=== PATIENT | female | born 1950 | race Caucasian/White ===

== ENCOUNTER → 2017-07-02 | Outpatient (CLI) | payer OTHER ==
[~2017-07-02] MED LIST: NS 100 ML IV 100 ML IV ONE
--- NOTE | 2017-07-02 10:42 | CT ---
HISTORY: Right-sided abdomen pain radiating to back. Anterior abdominal pain with nausea. Symptoms fo r 4 months. Study: CT abdomen and pelvis with IV and oral contrast Comparison: No priors Technique: Multiple axial images of the abdomen and pelvis were obtained from the lung bases to the pubic symphy sis during the administration of IV contrast. Oral contrast agents were also given. Images are revie wed in coronal and sagittal planes also. Dose reduction techniques utilized automatic exposure contro l. Findings: The visualized portions of the lung bases are unremarkable. There is evidence of fairly large amount of ascites present within the abdomen and pelvis. There is also evidence of omental caking. This may indicate the presence of ovarian, gastric or colon cancer, rarely metastatic melanoma. Tissue diagnos is will be needed. The liver is normal in size. There are peripheral hypodensities present within rig ht and left hepatic lobes which are too small to characterize but may represent small cysts. The sple en, pancreas, kidneys, and adrenal glands are unremarkable in their CT appearance. The gallbladder is unremarkable in its CT appearance. No significant mesenteric lymphadenopathy or stranding can be ob served. No free air is seen within the abdomen. No bowel wall dilatation is present. The rodriguez of the sigmoid colon region appear to be thickened. Evaluation by colonoscopy is encouraged. No signific ant diverticulosis is seen. Uterus is normal in size but displays a heterogeneous appearance. Further evaluation of the pelvis by ultrasound is suggested.. The urinary bladder is grossly unremarkable. The bony structures are grossly intact. IMPRESSION: Fairly large amount of ascites present within the abdomen and pelvis. 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 The omentum measures about 3 cm in thickness and 16 cm in diameter. This is best seen on series 4, image 51. Although this may be on the basis of inflammation, this is most frequently seen in the presence of ovarian , gastric or colon cancer, rarely metastatic melanoma. Thickening of the rodriguez of the sigmoid colon is present and may be significant. Colonoscopy of this region is encouraged. A tis isabel diagnosis will likely be needed. Reported By:
== END ==
LOC: RAD 08:56
PROVIDERS: ATTEND Internal Medicine
DX: R10.11 Right upper quadrant pain (principal); R10.31 Right lower quadrant pain; R10.32 Left lower quadrant pain; R18.8 Other ascites
CPT/HCPCS: 74177; A4222

== ENCOUNTER 2021-06-11 15:20 | Inpatient (IN) ==
[2021-06-11 18:17] LABS: BLOOD UREA NITROGEN 29 mg/dL (7-18); CALCIUM 8.5 mg/dL (8.5-10.1); CARBON DIOXIDE 21.3 mmol/L (21-32); CHLORIDE 102 mmol/L (98-107); CREATININE 0.96 mg/dL (0.55-1.02); SODIUM 137 mmol/L (136-145); eGFR NON BLACK RACES > 60 (>60)
[2021-06-11 18:28] VITALS: BMI 24.0
[2021-06-11 18:29] LABS: BASOPHILS % (AUTO) 0.4 % (0.2-1.0); EOSINOPHILS % (AUTO) 0.3 % (0.9-2.9); HEMATOCRIT 26.4 % (36.0-47.0); HEMOGLOBIN 8.7 g/dL (12.0-16.0); LYMPHOCYTES # (AUTO) 0.3 X10^3/uL (1.3-2.9); LYMPHOCYTES % (AUTO) 14.3 % (21.0-51.0); MEAN CORPUSCULAR HEMOGLOBIN 27.8 pg (27.0-34.0); MEAN CORPUSCULAR VOLUME 84.3 fL (80.0-100.0); MEAN PLATELET VOLUME 7.3 fL (7.4-11.0); MONOCYTES # (AUTO) 0.1 x10^3/uL (0.3-0.8); NEUTROPHILS # (AUTO) 1.9 x10^3/uL (2.2-4.8); RED BLOOD COUNT 3.13 X10^6/uL (3.5-5.4); RED CELL DISTRIBUTION WIDTH 17.8 % (11.6-16.5); WHITE BLOOD COUNT 2.3 X10^3/uL (3.6-10.0)
[2021-06-11 18:48] LABS: ALANINE AMINOTRANSFERASE 16 Units/L (12-78); ALBUMIN 2.2 g/dL (3.4-5.0); ALKALINE PHOSPHATASE 376 Units/L (46-116); AMYLASE 68 Units/L (25-115); ASPARTATE AMINO TRANSFERASE 59 Units/L (15-37); COR CA(FOR HYPOALB) 9.9 mg/dL (8.5-10.1); LIPASE 130 Units/L (73-393); TOTAL PROTEIN 6.4 g/dL (6.4-8.2)
[2021-06-11 19:12] LABS: OVALOCYTES SLIGHT; PLATELET MORPHOLOGY COMMENT NORMAL (NORMAL); TARGET CELLS SLIGHT; TEAR DROP CELLS SLIGHT
[2021-06-11] MEDS ORDERED: MORPHINE SULFATE INJ 2 MG INJ ONE (19:21)
[2021-06-11 19:32] LABS: BILIRUBIN,URINE 1+ (NEGATIVE); BLOOD/HEMOGLOBIN,URINE 1+ (NEGATIVE); GLUCOSE, URINE NEGATIVE (NEGATIVE); KETONES,URINE 3+ (NEGATIVE); LEUKOCYTE ESTERASE ,URINE 1+ (NEGATIVE); NITRITES,URINE NEGATIVE (NEGATIVE); PROTEIN,URINE 3+ (NEGATIVE); UROBILINOGEN,URINE NORMAL (NORMAL)
[2021-06-11] MEDS: ZOFRAN INJ 4 MG VIAL IVP PRN (19:35)
[2021-06-11] MEDS: NS 1,000 ML IV 1,000 ML IV SCH (19:35)
[2021-06-11] MEDS: MORPHINE SULFATE INJ 2 MG INJ IVP PRN (19:36)
[2021-06-11 19:48] LABS: APPEARANCE,URINE CLEAR (CLEAR); BACTERIA,URINE 1+ /HPF (NEGATIVE); COLOR,URINE YELLOW (YELLOW); HYALINE CASTS, URINE MANY /LPF (NEGATIVE); RBC,URINE 0-2 /HPF (0-3); SQUAMOUS EPITHELIAL CELL,UR FEW /HPF (NEGATIVE)
[2021-06-11] MEDS ORDERED: PHARMACY CONSULT - LOVENOX XX SCH (20:00)
[2021-06-11] MEDS ORDERED: PHARMACY CONSULT - IVERMECTIN XX SCH (20:00)
--- NOTE | 2021-06-11 20:43 | RAD ---
HISTORYABD PAIN Relevant Clinical InformationSTUDYKUBCOMPARISONNone br.br.br pattern. No pathological soft tissue mass or calcification can be observed. The bony structures are grossly intact.IMPRESSIONNo evidence for acute abdominal pathology identified.Electronically signed by: NANCY MYERS (Jun 11, 2021 20:42:11)
--- NOTE | 2021-06-11 20:43 | RAD ---
HISTORYRelevant Clinical Information COVIDSTUDYCHEST, 1 VIEWCOMPARISONNoneFINDINGSThe trachea is midline. The cardiac silhouette is unremarkable. A right-sided Port-A-Cath is noted with tip overlying the cavoatrial junction. The lungs demonstrate a moderate-sized left-sided effusion with associated consolidation/atelectasis. There is also a tiny cys effusions suspected on the right t the bony thorax is unremarkable.IMPRESSIONSigns left-sided effusion with associated atelectasis/consolidation. A tiny effusion suspected on the right as well.Electronically signed by: NANCY MYERS (Jun 11, 2021 20:41:57)
[2021-06-11] MEDS: LOVENOX INJ 30 MG SYR SC SCH (20:58)
[2021-06-11] MEDS ORDERED: REMDESIVIR 200 MG in NS 250 ML IV 250 ML IV ONE (21:00)
[2021-06-11] MEDS: LUVOX PO SCH (21:00)
[2021-06-11] MEDS: SOLU-Medrol 40 MG VIAL IVP SCH (21:00)
[2021-06-12] MEDS: MORPHINE SULFATE INJ 2 MG INJ IVP PRN ×5 (00:56→22:57)
[2021-06-12] MEDS: ZOFRAN INJ 4 MG VIAL IVP PRN ×2 (05:13→20:10)
[2021-06-12] MEDS: SOLU-Medrol 40 MG VIAL IVP SCH ×3 (05:13→21:55)
[2021-06-12 05:35] LABS: BASOPHILS % (AUTO) 0.2 % (0.2-1.0); EOSINOPHILS % (AUTO) 0.1 % (0.9-2.9); HEMATOCRIT 24.8 % (36.0-47.0); HEMOGLOBIN 8.1 g/dL (12.0-16.0); LYMPHOCYTES # (AUTO) 0.3 X10^3/uL (1.3-2.9); LYMPHOCYTES % (AUTO) 13.8 % (21.0-51.0); MEAN CORPUSCULAR HEMOGLOBIN 27.8 pg (27.0-34.0); MEAN CORPUSCULAR HGB CONC 32.9 g/dL (33.0-35.0); MEAN CORPUSCULAR VOLUME 84.6 fL (80.0-100.0); MEAN PLATELET VOLUME 7.3 fL (7.4-11.0); MONOCYTES # (AUTO) 0.1 x10^3/uL (0.3-0.8); MONOCYTES % (AUTO) 6.4 % (0.0-13.0); NEUTROPHILS # (AUTO) 1.8 x10^3/uL (2.2-4.8); NEUTROPHILS % (AUTO) 79.5 % (42.0-75.0); RED BLOOD COUNT 2.93 X10^6/uL (3.5-5.4); RED CELL DISTRIBUTION WIDTH 17.8 % (11.6-16.5); WHITE BLOOD COUNT 2.3 X10^3/uL (3.6-10.0)
[2021-06-12 05:39] LABS: BLOOD UREA NITROGEN 33 mg/dL (7-18); CALCIUM 8.5 mg/dL (8.5-10.1); CARBON DIOXIDE 21.6 mmol/L (21-32); CHLORIDE 104 mmol/L (98-107); CREATININE 1.04 mg/dL (0.55-1.02); SODIUM 141 mmol/L (136-145); eGFR NON BLACK RACES 56 (>60)
[2021-06-12 06:07] LABS: ALANINE AMINOTRANSFERASE 14 Units/L (12-78); ALKALINE PHOSPHATASE 351 Units/L (46-116); AMYLASE 48 Units/L (25-115); ASPARTATE AMINO TRANSFERASE 54 Units/L (15-37); COR CA(FOR HYPOALB) 10.1 mg/dL (8.5-10.1); LIPASE 51 Units/L (73-393); TOTAL PROTEIN 6.2 g/dL (6.4-8.2)
[2021-06-12 06:26] LABS: ANISOCYTOSIS 1+; HYPOCHROMASIA 1+; PLATELET MORPHOLOGY COMMENT NORMAL (NORMAL)
[2021-06-12] MEDS ORDERED: REMDESIVIR 100 MG in NS 250 ML IV 250 ML IV SCH (09:00)
--- NOTE | 2021-06-12 09:50 | CT ---
HISTORYelevated d dimer, r/o pe history of ovarian carcinoma.[facility]CT[facility]AL[facility]21TECHNIQUEMultiple CT axial images of the chest were obtained with IV contrast. Coronal and sagittal images were reconstructed. 3D reconstructions using axial MIPS imaging was performed and reviewed. Dose reduction techniques included Automated Exposure Control (AEC) and adjustment of mA and kV.Stenoses are measured using NASCET criteria.FINDINGSPulmonary arteries are identified to lobar branches in the left lower lung in segmental branches in the upper left lung and right lung. No pulmonary emboli.Aorta have a normal caliber with no dissection.Large left pleural effusion is small right pleural effusion are new since the prior study. Complete collapse of the left lower lobe is associated with the large left effusion. Minimal atelectasis in the left upper lobe and the right lower lobe.Multiple pulmonary nodules are present consistent with metastatic disease. Largest nodules in aerated lung are located in the right lower lung and these are larger than on the prior study.The heart is normal in size. Atherosclerotic calcifications are present in the coronary arteries. Mediastinal lymphadenopathy is new. Largest lymph nodes are in the precarinal mediastinum.The thyroid has a normal size and configuration. No axillary mass or significant axillary lymphadenopathy is identified. Bilateral breast implants are present.The amount of Large volume ascites does not appear to be changed significantly. Multiple liver masses are consistent with metastases. These are larger than on the prior study.Degenerative changes are present in the spine.IMPRESSION1. No pulmonary emboli2. Larger pulmonary and hepatic metastases3. New bilateral effusions, large on the leftElectronically signed by: Eduardo Freitas (Jun 12, 2021 09:48:19)
[2021-06-12] MEDS ORDERED: SOTROVIMAB (EUA) 500 MG, DRUG FILTER EXTENSION SET * 1 EA in NS 250 ML IV 250 ML IV NR ×2 (10:00)
--- NOTE | 2021-06-12 10:14 | DR.H&P ---
H&P - History & Physical for Day of: H&P Date: 06/11/21 - Chief Complaint Chief Complaint: INTRACTABLE N/V/D, ABDOMINAL PAIN - History of Present Illness History of Present Illness: IS A 71 YEAR OLD PATIENT OF OURS. SHE HAS BEEN SEEN IN THE OFFICE FOR REPORTS OF PERSISTENT NAUSEA, VOMITING, DIARRHEA, ABDOMINAL PAIN, AND BACK PAIN X 1 DAYS. PATIENT REPORTS RECENTLY HAVING A SMALL BOWEL OBSTRUCTION. SHE HAS ALSO HAD RECENT PLACEMENT OF STENT IN CORONARY ARTERY. SHE HAS A CURRENT HISTORY OF BREAST CANCER WITH METS TO THE CERVIX, LIVER, AND COLON. ON EXAMINATION, PATIENT WAS LETHARGIC AND PALE. EXAMINATION REVEALED A DISTENDED ABDOMEN AND GENERALIZED TENDERNESS. DECREASED BOWEL SOUNDS WERE NOTED. SHE WAS ADMITTED TO THE HOSPITAL FOR FURTHER EVALUATION AND TREATMENT OF INTRACTABLE N/V/D, ABDOMINAL PAIN, R/O SBO. ON ARRIVAL TO THE HOSPTIAL, VITALS WERE 98.2-100-20-96%-119/56. LABS WERE OBTAINED. WBC 2.3, RBC 3.13, HGB 8.7, HCT 26.4, D-DIMER 8.51, SODIUM 137, POTASSIUM 4.0, CHLORIDE 102, BUN 29, CREATININE 0.96, GLUCOSE 97, CALCIUM 8.5, AST 59, ALT 16, ALK PHOS 376, CRP 131, BNP 395, TOTAL PROTEIN 6.4, ALBUMIN 2.2. URINALYSIS WAS OBTAINED AND IS UNREMARKABLE. COVID-19 POSITIVE. A URINE CULTURE WAS SET UP. A CHEST XRAY WAS OBTAINED AND REVEALED: Signs left-sided effusion with associated atelectasis/consolidation. A tiny effusion suspected on the right as well. A KUB WAS OBTAINED AND REVEALED: No evidence for acute abdominal pathology identified. ON ADMISSION, SHE WAS STARTED ON NORMAL SALINE AT KVO, ZOSYN 3.375G IV TID, LOVENOX 30MG SC BID, LUVOX 50MG PO BID, IVERMECTIN 18MG PO DAILY, SOLU-MEDROL 40MG IV Q8H, MORPHINE 1-2MG IV Q4H PRN, AND ZOFRAN 4MG IV Q6H PRN. WE WILL ADMINSTER SOTROVIMAB 500MG IV X 1 DOSE. WE WILL OBTAIN A CHEST CTA TO RULE OUT PE AND AN ABDOMEN/PELVIS CT WITH CONTRAST TO RULE OUT SBO AND OTHER CAUSES OF INTRACTABLE ABDOMINAL PAIN. OTHERWISE, WE PLAN TO FOLLOW UP WITH AM LABS AND CONTINUE TO MONITOR. TIME SPENT ON CLINICAL ASSESSMENT, REVIEWING LABS AND IMAGING, DECISION MAKING, AND DOCUMENTATION GREATER THAN 75 MINUTES. - Past Medical History Past Medical History: Cirrhosis, Coronary Artery Disease, [place] Additional Medical History: BREAST,LIVER,COLON,CERVICAL CANCER - Past Surgical History Surgical History: Abdominal Surgery, Appendectomy, Bowel Resection, CABG/Valve Surgery, Hysterectomy, Mastectomy - Social History Does patient currently use any type of tobacco product: No Have you used tobacco products in the last 12 months: No Type of Tobacco Use: None Does any household member use tobacco: No Alcohol Use: None Drug Use: None - Medications Home Medications: meperidine [From Demerol] Adverse Reaction (Mild, Verified 06/11/21 17:34) NAUSEA - Review of Systems Constitutional: Weakness Eyes: No Symptoms Reported ENT: No Symptoms Reported Respiratory: Shortness of Breath Cardiovascular: No Symptoms Reported Gastrointestinal: See HPI, Nausea, Vomiting, Abdominal Pain, Diarrhea Genitourinary: No Symptoms Reported Musculoskeletal: No Symptoms Reported Skin: No Symptoms Reported Neurological: Weakness - Physical Exam Vital Signs: Temperature 98.0 F Pulse Rate [Left] 86 Respiratory Rate 19 Blood Pressure [Right Arm] 101/60 O2 Sat by Pulse Oximetry 93 Oriented: Normal Eyes: Normal Ear: Normal Nose: Normal Throat: Normal Respiratory: Diminished Throughout Cardiovascular: Normal : Normal Palpation: Normal Tenderness: Diffuse, Moderate Skin: Decreased Turgur Musculoskeletal: Normal Psychiatric: Normal Mood Description: Calm Affect: Normal Speech Pattern: Clear - Assessment/Plan (1) COVID-19 Status: Acute Plan: ADMIT, NORMAL SALINE AT KVO, ZOSYN 3.375G IV TID, LOVENOX 30MG SC BID, LUVOX 50MG PO BID, IVERMECTIN 18MG PO DAILY, SOLU-MEDROL 40MG IV Q8H, MORPHINE 1-2MG IV Q4H PRN, AND ZOFRAN 4MG IV Q6H PRN. WE WILL ADMINSTER SOTROVIMAB 500MG IV X 1 DOSE. OBTAIN ABDOMEN/PELVIS CT WITH CONTRAST, OBTAIN CHEST CTA R/O PE (2) Abdominal pain Qualifiers: Abdominal location: generalized Qualified Code(s): R10.84 - Generalized abdominal pain Status: Acute (3) Intractable nausea and vomiting Status: Acute (4) Metastatic disease Qualifiers: Area of secondary neoplastic involvement: unspecified site Qualified Code(s): C79.9 - Secondary malignant neoplasm of unspecified site Status: Acute - Allergies Allergies/Adverse Reactions: Allergies Allergy/AdvReac Type Severity Reaction Status Date / Time meperidine [From Demerol] AdvReac Mild NAUSEA Verified 06/11/21 17:34
[2021-06-12] MEDS: LUVOX PO SCH ×2 (10:48→20:54)
[2021-06-12] MEDS: LOVENOX INJ 30 MG SYR SC SCH ×2 (10:49→20:54)
[2021-06-12] MEDS: IVERMECTIN PO SCH (10:49)
[2021-06-12] MEDS: PLAVIX PO SCH (11:02)
[2021-06-12] MEDS: ZOSYN VIAL 3.375 GRAMS 3.375 G in NS 100 ML IV + SPIKE MINIBAG* 100 ML IV SCH ×3 (11:02→21:55)
[2021-06-12] MEDS: LASIX PO SCH ×2 (11:05→20:54)
[2021-06-12 11:08] LABS: CKMB % 1.9 % (<4); CREATINE KINASE MB 1.2 ng/mL (0-4.0)
[2021-06-12] MEDS: PHENERGAN INJ 25 MG IM SCH ×3 (15:46→22:57)
[2021-06-12] MEDS: NS 1,000 ML IV 1,000 ML IV SCH (19:50)
[2021-06-12] MEDS ORDERED: CRESTOR TAB 10 MG PO SCH (21:00)
[2021-06-13] MEDS: ZOFRAN INJ 4 MG VIAL IVP PRN ×4 (02:44→23:30)
[2021-06-13] MEDS: PHENERGAN INJ 25 MG IM SCH (04:30)
[2021-06-13] MEDS: ZOSYN VIAL 3.375 GRAMS 3.375 G in NS 100 ML IV + SPIKE MINIBAG* 100 ML IV SCH ×3 (05:53→22:23)
[2021-06-13] MEDS: SOLU-Medrol 40 MG VIAL IVP SCH ×3 (05:53→22:23)
[2021-06-13 06:40] LABS: EOSINOPHILS % (AUTO) 0.3 % (0.9-2.9); MEAN PLATELET VOLUME 7.1 fL (7.4-11.0); MONOCYTES # (AUTO) 0.1 x10^3/uL (0.3-0.8)
[2021-06-13 06:47] LABS: BASOPHILS % (AUTO) 0.3 % (0.2-1.0); HEMATOCRIT 25.8 % (36.0-47.0); HEMOGLOBIN 8.5 g/dL (12.0-16.0); LYMPHOCYTES # (AUTO) 0.4 X10^3/uL (1.3-2.9); MEAN CORPUSCULAR HEMOGLOBIN 28.1 pg (27.0-34.0); MEAN CORPUSCULAR VOLUME 85.3 fL (80.0-100.0); MONOCYTES % (AUTO) 8.2 % (0.0-13.0); NEUTROPHILS # (AUTO) 1.1 x10^3/uL (2.2-4.8); NEUTROPHILS % (AUTO) 69.2 % (42.0-75.0); RED BLOOD COUNT 3.02 X10^6/uL (3.5-5.4); RED CELL DISTRIBUTION WIDTH 17.9 % (11.6-16.5); WHITE BLOOD COUNT 1.6 X10^3/uL (3.6-10.0)
[2021-06-13 06:58] LABS: ALBUMIN 2.1 g/dL (3.4-5.0); CALCIUM 8.4 mg/dL (8.5-10.1); CARBON DIOXIDE 19.9 mmol/L (21-32); COR CA(FOR HYPOALB) 9.9 mg/dL (8.5-10.1); CREATININE 1.38 mg/dL (0.55-1.02); TOTAL PROTEIN 6.4 g/dL (6.4-8.2)
--- NOTE | 2021-06-13 07:18 | RAD ---
HISTORYCOVID-19 SOBSTUDYAP [id number]/24/2022FINDINGSPersist ent large left pleural effusion obscuring the underlying left lower lobe which may be involved with airspace disease. The right chest is relatively clear as before. Stable position of injection port.IMPRESSIONNo change. See above.Electronically signed by: WILFREDO MAS (Jun 13, 2021 07:17:42)
[2021-06-13] MEDS ORDERED: NS 100 ML IV 100 ML ONE (07:21)
--- NOTE | 2021-06-13 08:25 | CT ---
HISTORYABD PAIN, RECENT HX OF SBOSTUDYCT abdomen pelvis with IV contrastCOMPARISONX-ray 06/11/[address] 05/13/2021TECHNIQUEMultiple axial images of the abdomen and pelvis were obtained from the lung bases to the pubic symphysis after the administration of IV contrast. 100 cc Omnipaque 350 IV contrast. Dose reduction techniques including Automated Exposure Control (AEC) and adjustment of mA and kV were utilized.FINDINGSThe visualized portions of the lung bases reveal moderate left pleural effusion and small right pleural effusion. Associated atelectasis is seen. There are likely few small nodules in the right lung base that are concerning for metastatic disease. These were present previously.Multiple hepatic metastases are seen throughout the liver. These are similar to prior study.In the superior aspect of the spleen there is a small wedge-shaped area of slight diminished density the. This could be a small splenic infarct of approximately 1/10 of the volume of the spleen.Gallbladder is partially effaced due to the hepatic metastases and the ascites. No gallbladder abnormality is seen. No biliary ductal dilation.No pancreatic abnormality is seen.The adrenal glands appear normal.Likely 8 mm cyst in the mid left kidney. Right kidney appears normal. No hydronephrosis. Ureters and bladder appear normal.Prior anastomosis in the rectosigmoid colon. There are dilated small bowel loops extending into the pelvis. This appearance has worsened since prior study. Small bowel is dilated up to 5.6 cm in diameter. Distal ileum is decompressed. Findings are likely due to adhesions in the small bowel in the deep pelvis near the area of prior colonic anastomosis. Appendix is not identified.No adnexal masses are seen.Abdominal aorta is normal in size.Few small lymph nodes are seen in the root of the mesentery, unchanged. Shotty appearing retroperitoneal lymph nodes are seen, similar to prior study.Prominent ascites is similar to prior study. There is a small umbilical hernia containing fluid as well as a tiny supraumbilical hernia containing fluid. There is moderate anasarca.No acute bony abnormality is seen.IMPRESSIONSmall-bowel obstruction in the deep pelvis with small bowel dilated up to 5.6 cm in diameter. Adhesions are the most likely etiology. Small-bowel dilation is worsened since prior study.Persistent prominent ascites may be associated with metastatic disease or treatment related changes. Multiple metastases in the liver are similar to prior study.Probable small metastases are seen in the lung bases.Electronically signed by: Jaron Hall (Jun 13, 2021 08:23:37)
[2021-06-13] MEDS ORDERED: PERCOCET TAB 5/325 MG PO PRN (08:27)
[2021-06-13 08:36] LABS: CKMB % 1.8 % (<4); CREATINE KINASE MB 1.8 ng/mL (0-4.0)
[2021-06-13] MEDS: MORPHINE SULFATE INJ 2 MG INJ IVP PRN ×3 (08:49→23:30)
[2021-06-13] MEDS ORDERED: ASPIRIN EC 81 MG PO SCH (09:00)
[2021-06-13] MEDS ORDERED: FERROUS GLUCONATE PO SCH (09:00)
--- NOTE | 2021-06-13 12:27 | RAD ---
KUBHISTORY: NG TUBE PLACEMENTStudy: Single view of the abdomen.Comparison:CT same dayFindings:There is a NG tube terminating within the stomach with side port near the GE junction.IMPRESSION:1. NG tube terminating within the stomach with side port at GE junction. Recommend advancement at least 7 cm.Electronically signed by: ZORAIDA HERNANDEZ (Jun 13, 2021 12:25:16)
[2021-06-13] MEDS ORDERED: PHENERGAN INJ 25 MG IM PRN (13:37)
--- NOTE | 2021-06-13 13:47 | PCM.PROG ---
Progress Note - Progress Note for Day of Date of Exam: 06/13/21 - Subjective Subjective: WAS ADMITTED FOR TREATMENT OF COVID-19, INTRACTABLE N/V, AND ABDOMINAL PAIN. SHE HAS A HISTORY OF METASTATIC DISEASE. PATIENT ALSO RECENTLY UNDERWENT RECENT STENT PLACEMENT IN CORONARY ARTERY ABOUT A MONTH AGO. TODAY, SHE IS LYING IN BED WITH EYES CLOSED ON MORNING ROUNDS. SHE AWAKENS AND RESPONDS TO VERBAL STIMULI. STAFF REPORTS THAT SHE HAS HAD MULTIPLE EPISODES OF N/V THROUGHOUT THE NIGHT. SHE CONTINUES WITH DIFFUSE ABDOMINAL PAIN TODAY. ON EXAMINATION, HEART IS REGULAR IN RATE AND RHYTHM. BILATERAL LUNGS NOTED WITH DIMINISHED LUNG SOUNDS THROUGHOUT. ABDOMEN IS FLAT, SOFT, AND NOTED WITH DIFFUSE TENDERNESS. DECREASED BOWEL SOUNDS NOTED. HER VITALS THIS MORNING ARE: 97.5-93 -12-99%-131/63. LABS WERE OBTAINED. ABNORMAL LAB VALUES INCLUDE THE FOLLOWING: WBC 1.6, RBC 3.02, HGB 8.5, HCT 25.8, CARBON DIOXIDE 19.9, BUN 44, CREATININE 1.38, GLUCOSE 118, CALCIUM 8.4, AST 49, ALK PHOS 356, CRP 162.50, BNP 289, ALBUMIN 2.1. TROPONIN IS 174.4. THIS HAS DECREASED SINCE YESTERDAY. URINE CULTURE IS PENDING. A CHEST CTA WAS OBTAINED YESTERDAY AND REVEALED: 1. No pulmonary emboli 2. Larger pulmonary and hepatic metastases 3. New bilateral effusions, large on the left. AN ABDOMEN/PELVIS CT WITH CONTRAST WAS OBTAINED THIS MORNING AND REVEALED: Small-bowel obstruction in the deep pelvis with small bowel dilated up to 5.6 cm in diameter. Adhesions are the most likely etiology. Small-bowel dilation is worsened since prior study. Persistent prominent ascites may be associated with metastatic disease or treatment related changes. Multiple metastases in the liver are similar to prior study. Probable small metastases are seen in the lung bases. TODAYS CHEST XRAY REVEALED: Persistent large left pleural effusion obscuring the underlying left lower lobe which may be involved with airspace disease. The right chest is relatively clear as before. Stable position of injection port. SHE IS CURRENTLY RECEIVING NORMAL SALINE AT KVO, ZOSYN 3.375G IV TID, LOVENOX 30MG SC BID, LUVOX 50MG PO BID, IVERMECTIN 18MG PO DAILY, SOLU-MEDROL 40MG IV Q8H, MORPHINE 1-2MG IV Q4H PRN, PHENERGAN 25MG IM Q6H PRN, AND ZOFRAN 4MG IV Q6H PRN. SHE RECEIVIED SOTROVIMAB 500MG IV X 1 DOSE YESTERDAY. TODAY, WE WILL START LASIX 40MG IV BID, TPN, AND INSERT AN NG TUBE TO LOW INTERMITTENT SUCTION. PATIENT WILL REMAIN NPO. OTHERWISE, WE PLAN TO FOLLOW UP WITH AM LABS AND KUB AND CONTINUE TO MONITOR. TIME SPENT ON CLINICAL ASSESSMENT, REVIEWING LABS AND IMAGING, DECISION MAKING, AND DOCUMENTATION GREAT ER THAN 75 MINUTES. - Past Medical Family Social History Past Med/Fam/Surg Hx: No changes since H&P Allergies: Allergies meperidine [From Demerol] Adverse Reaction (Mild, Verified 06/11/21 17:34) NAUSEA severe nausea - Review of Systems ROS: No change since H&P - Vital Signs and I&O's Vital Signs: Temperature 97.5 F Pulse Rate [Left] 93 Respiratory Rate 18 Blood Pressure [Right Arm] 131/63 O2 Sat by Pulse Oximetry 99 Intake and Output: Intake & Output 06/11/21 06/12/21 06/13/21 06/14/21 11:59 11:59 11:59 11:59 Intake Total 550 / 550 500 / 500 Output Total 400 / 400 Balance 150 / 150 500 / 500 - Physical Exam Oriented: Normal Eyes: Normal Ear: Normal Nose: Normal Throat: Normal Respiratory: Generalized, Diminished Cardiovascular: Normal : Normal Auscultation: Bowel Sounds: Decreased Tenderness: Diffuse, Moderate Skin: Decreased Turgur Musculoskeletal: Normal Psychiatric: Normal Mood Description: Calm Affect: Normal Speech Pattern: Clear, Appropriate - Laboratory and Diagnostics Result Diagrams: 06/13/21 06:21 06/13/21 06:21 Labs: 06/11/21 18:58 Urine,Clean Catch Urine Culture - Final Laboratory WBC 1.6 X10^3/uL (3.6-10.0) L* 06/13/21 06:21 RBC 3.02 X10^6/uL (3.5-5.4) L 06/13/21 06:21 Hgb 8.5 g/dL (12.0-16.0) L 06/13/21 06:21 Hct 25.8 % (36.0-47.0) L 06/13/21 06:21 MCV 85.3 fL (80.0-100.0) 06/13/21 06:21 MCH 28.1 pg (27.0-34.0) 06/13/21 06:21 MCHC 33.0 g/dL (33.0-35.0) 06/13/21 06:21 RDW 17.9 % (11.6-16.5) H 06/13/21 06:21 Plt Count 283 X10^3/uL (150.0-450.0) 06/13/21 06:21 Plt Count Comment Adequate (ADEQUATE) 06/12/21 04:28 MPV 7.1 fL (7.4-11.0) L 06/13/21 06:21 Neut % (Auto) 69.2 % (42.0-75.0) 06/13/21 06:21 Lymph % (Auto) 22.0 % (21.0-51.0) 06/13/21 06:21 Johnson % (Auto) 8.2 % (0.0-13.0) 06/13/21 06:21 Eos % (Auto) 0.3 % (0.9-2.9) L 06/13/21 06:21 Baso % (Auto) 0.3 % (0.2-1.0) 06/13/21 06:21 Neut # (Auto) 1.1 x10^3/uL (2.2-4.8) L 06/13/21 06:21 Lymph # (Auto) 0.4 X10^3/uL (1.3-2.9) L 06/13/21 06:21 Johnson # (Auto) 0.1 x10^3/uL (0.3-0.8) L 06/13/21 06:21 Eos # (Auto) 0.0 x10^3/uL (0.0-0.2) 06/13/21 06:21 Baso # (Auto) 0.0 X10^3/uL (0.0-0.1) 06/13/21 06:21 Absolute Nucleated RBC 0.0 /100WBC 06/13/21 06:21 Total Counted 100 06/12/21 04:28 Neutrophils % (Manual) 80 % (39-76) H 06/12/21 04:28 Lymphocytes % (Manual) 14 % (13-43) 06/12/21 04:28 Monocytes % (Manual) 6 % (4-9) 06/12/21 04:28 Plt Morphology Comment Normal (NORMAL) 06/12/21 04:28 RBC Morphology Abnormal (NORMAL) A 06/12/21 04:28 Hypochromasia 1+ A 06/12/21 04:28 Anisocytosis 1+ A 06/12/21 04:28 Target Cells Slight A 06/11/21 17:54 Tear Drop Cells Slight A 06/11/21 17:54 Ovalocytes Slight A 06/11/21 17:54 D-Dimer 8.51 ug/ml (0.0-0.57) H* 06/11/21 17:54 D-Dimer Cancelled 06/11/21 17:54 Sodium 141 mmol/L (136-145) 06/13/21 06:21 Corrected Sodium 141 mmol/L (136-145) 06/13/21 06:21 Potassium 4.1 mmol/L (3.5-5.1) 06/13/21 06:21 Chloride 105 mmol/L (98-107) 06/13/21 06:21 Carbon Dioxide 19.9 mmol/L (21-32) L 06/13/21 06:21 BUN 44 mg/dL (7-18) H 06/13/21 06:21 Creatinine 1.38 mg/dL (0.55-1.02) H 06/13/21 06:21 Est GFR (MDRD) Af Amer 48 (>60) L 06/13/21 06:21 Est GFR (MDRD) Non-Af 40 (>60) L 06/13/21 06:21 Glucose 118 mg/dL (65-99) H 06/13/21 06:21 Calcium 8.4 mg/dL (8.5-10.1) L 06/13/21 06:21 Corrected Calcium 9.9 mg/dL (8.5-10.1) 06/13/21 06:21 Total Bilirubin 0.40 mg/dL (0.2-1.0) 06/13/21 06:21 AST 49 Units/L (15-37) H 06/13/21 06:21 ALT 13 Units/L (12-78) 06/13/21 06:21 Alkaline Phosphatase 356 Units/L (46-116) H 06/13/21 06:21 Creatine Kinase 99 Units/L (26-192) 06/13/21 06:21 CK-MB (CK-2) 1.8 ng/mL (0-4.0) 06/13/21 06:21 CK/CKMB % Calc 1.8 % (<4) 06/13/21 06:21 Troponin I High Sens 174.4 ng/L (4.0-60.0) H* 06/13/21 06:21 C-Reactive Protein 162.50 mg/L (0-3.0) H 06/13/21 06:21 B-Natriuretic Peptide 289 pg/mL (0-79) H 06/13/21 06:21 Total Protein 6.4 g/dL (6.4-8.2) 06/13/21 06:21 Albumin 2.1 g/dL (3.4-5.0) L 06/13/21 06:21 Globulin 4.3 g/dL (2.5-4.5) 06/13/21 06:21 Albumin/Globulin Ratio 0.5 Ratio (1.1-2.1) L 06/13/21 06:21 Amylase 48 Units/L (25-115) 06/12/21 04:28 Lipase 51 Units/L (73-393) L 06/12/21 04:28 Specimen Type Clean catch urine 06/11/21 18:58 Urine Color Yellow (YELLOW) 06/11/21 18:58 Urine Appearance Clear (CLEAR) 06/11/21 18:58 Urine pH 5.0 (5.0 - 8.0) 06/11/21 18:58 Ur Specific [place] 1.020 (1.000-1.030) 06/11/21 18:58 Urine Protein 3+ (NEGATIVE) 06/11/21 18:58 Urine Glucose (UA) Negative (NEGATIVE) 06/11/21 18:58 Urine Ketones 3+ (NEGATIVE) 06/11/21 18:58 Urine Occult Blood 1+ (NEGATIVE) 06/11/21 18:58 Urine Nitrite Negative (NEGATIVE) 06/11/21 18:58 Urine Bilirubin 1+ (NEGATIVE) 06/11/21 18:58 Urine Urobilinogen Normal (NORMAL) 06/11/21 18:58 Ur Leukocyte Esterase 1+ (NEGATIVE) 06/11/21 18:58 Urine RBC 0-2 /HPF (0-3) 06/11/21 18:58 Urine WBC 0-2 /HPF (0-5) 06/11/21 18:58 Ur Squamous Epith Cells Few /HPF (NEGATIVE) 06/11/21 18:58 Urine Bacteria 1+ /HPF (NEGATIVE) 06/11/21 18:58 Hyaline Casts Many /LPF (NEGATIVE) 06/11/21 18:58 Ur Culture Indicated? Yes/culture set up 06/11/21 18:58 SARS CoV-2 RNA Rapid ALY Positive (NEGATIVE) A 06/11/21 15:58 - Plan (1) COVID-19 Status: Acute Plan: NORMAL SALINE AT KVO, ZOSYN 3.375G IV TID, LOVENOX 30MG SC BID, SOLU- MEDROL 40MG IV Q8H, MORPHINE 1-2MG IV Q4H PRN, PHENERGAN 25MG IM Q6H PRN, AND ZOFRAN 4MG IV Q6H PRN, LASIX 40MG IV BID (2) Small bowel obstruction Status: Acute (3) Pleural effusion Status: Acute (4) Abdominal pain Status: Acute Qualifiers: Abdominal location: generalized Qualified Code(s): R10.84 - Generalized abdominal pain (5) Intractable nausea and vomiting Status: Acute (6) Metastatic disease Status: Acute Qualifiers: Area of secondary neoplastic involvement: unspecified site Qualified Code(s): C79.9 - Secondary malignant neoplasm of unspecified site
[2021-06-13] MEDS ORDERED: PHARMACY CONSULT - TPN XX SCH (14:00)
--- NOTE | 2021-06-13 14:05 | PCM.PROG ---
Progress Note - Progress Note for Day of Date of Exam: 06/12/21 - Subjective Subjective: WAS ADMITTED FOR TREATMENT OF COVID-19, INTRACTABLE N/V, AND ABDOMINAL PAIN. SHE HAS A HISTORY OF METASTATIC DISEASE. PATIENT ALSO RECENTLY UNDERWENT RECENT STENT PLACEMENT IN CORONARY ARTERY ABOUT A MONTH AGO. TODAY, SHE IS ALERT AND ORIENTED, LYING IN BED ON MORNING ROUNDS. SHE CONTINUES WITH DIFFUSE ABDOMINAL PAIN AND NAUSEA TODAY. ON EXAMINATION, HEART IS REGULAR IN RATE AND RHYTHM. BILATERAL LUNGS NOTED WITH DIMINISHED LUNG SOUNDS THROUGHOUT. ABDOMEN IS FLAT, SOFT, AND NOTED WITH DIFFUSE TENDERNESS. DECREASED BOWEL SOUNDS NOTED. HER VITALS THIS MORNING ARE: 98.0-86-14-93%-101/60. LABS WERE OBTAINED. ABNORMAL LAB VALUES INCLUDE THE FOLLOWING: WBC 2.3, RBC 2.93, HGB 8.1, HCT 24.8, SODIUM 141, POTASSIUM 4.3, BUN 33, CREATININE 1.04, GLUCOSE 100, AST 54, ALK PHOS 351, CRP 148.40, BNP 348, TOTAL PROTEIN 6.2, ALBUMIN 2.0, LIPASE 51. URINE CULTURE IS PENDING. SHE IS CURRENTLY RECEIVING NORMAL SALINE AT KVO, ZOSYN 3.375G IV TID, LOVENOX 30MG SC BID, LUVOX 50MG PO BID, IVERMECTIN 18MG PO DAILY, SOLU-MEDROL 40MG IV Q8H, MORPHINE 1-2MG IV Q4H PRN, PHENERGAN 25MG IM Q6H PRN, AND ZOFRAN 4MG IV Q6H PRN. WE WILL ADMINISTER SOTROVIMAB 500MG IV X 1 DOSE TODAY. WE WILL OBTAIN A CHEST CTA TO RULE OUT PE AND ABDOMEN/PELVIS CT WITH CONTRAST TO RULE OUT SBO. OTHERWISE, WE PLAN TO FOLLOW UP WITH AM LABS AND KUB AND CONTINUE TO MONITOR. TIME SPENT ON CLINICAL ASSESSMENT, REVIEWING LABS AND IMAGING, DECISION MAKING, AND DOCUMENTATION GREATER THAN 45 MINUTES. - Past Medical Family Social History Past Med/Fam/Surg Hx: No changes since H&P Allergies: Allergies meperidine [From Demerol] Adverse Reaction (Mild, Verified 06/11/21 17:34) NAUSEA severe nausea - Review of Systems ROS: No change since H&P - Vital Signs and I&O's Vital Signs: Temperature 97.5 F Pulse Rate [Left] 93 Respiratory Rate 18 Blood Pressure [Right Arm] 131/63 O2 Sat by Pulse Oximetry 99 Intake and Output: Intake & Output 06/11/21 06/12/21 06/13/21 06/14/21 11:59 11:59 11:59 11:59 Intake Total 550 / 550 500 / 500 Output Total 400 / 400 Balance 150 / 150 500 / 500 - Physical Exam Oriented: Normal Eyes: Normal Ear: Normal Nose: Normal Throat: Normal Respiratory: Generalized, Diminished Cardiovascular: Normal : Normal Auscultation: Bowel Sounds: Decreased Tenderness: Diffuse, Moderate Skin: Decreased Turgur Musculoskeletal: Normal Psychiatric: Normal Mood Description: Calm Affect: Normal Speech Pattern: Clear, Appropriate - Laboratory and Diagnostics Result Diagrams: 06/13/21 06:21 06/13/21 06:21 Labs: 06/11/21 18:58 Urine,Clean Catch Urine Culture - Final Laboratory WBC 1.6 X10^3/uL (3.6-10.0) L* 06/13/21 06:21 RBC 3.02 X10^6/uL (3.5-5.4) L 06/13/21 06:21 Hgb 8.5 g/dL (12.0-16.0) L 06/13/21 06:21 Hct 25.8 % (36.0-47.0) L 06/13/21 06:21 MCV 85.3 fL (80.0-100.0) 06/13/21 06:21 MCH 28.1 pg (27.0-34.0) 06/13/21 06:21 MCHC 33.0 g/dL (33.0-35.0) 06/13/21 06:21 RDW 17.9 % (11.6-16.5) H 06/13/21 06:21 Plt Count 283 X10^3/uL (150.0-450.0) 06/13/21 06:21 Plt Count Comment Adequate (ADEQUATE) 06/12/21 04:28 MPV 7.1 fL (7.4-11.0) L 06/13/21 06:21 Neut % (Auto) 69.2 % (42.0-75.0) 06/13/21 06:21 Lymph % (Auto) 22.0 % (21.0-51.0) 06/13/21 06:21 [place] % (Auto) 8.2 % (0.0-13.0) 06/13/21 06:21 Eos % (Auto) 0.3 % (0.9-2.9) L 06/13/21 06:21 Baso % (Auto) 0.3 % (0.2-1.0) 06/13/21 06:21 Neut # (Auto) 1.1 x10^3/uL (2.2-4.8) L 06/13/21 06:21 Lymph # (Auto) 0.4 X10^3/uL (1.3-2.9) L 06/13/21 06:21 [place] # (Auto) 0.1 x10^3/uL (0.3-0.8) L 06/13/21 06:21 Eos # (Auto) 0.0 x10^3/uL (0.0-0.2) 06/13/21 06:21 Baso # (Auto) 0.0 X10^3/uL (0.0-0.1) 06/13/21 06:21 Absolute Nucleated RBC 0.0 /100WBC 06/13/21 06:21 Total Counted 100 06/12/21 04:28 Neutrophils % (Manual) 80 % (39-76) H 06/12/21 04:28 Lymphocytes % (Manual) 14 % (13-43) 06/12/21 04:28 Monocytes % (Manual) 6 % (4-9) 06/12/21 04:28 Plt Morphology Comment Normal (NORMAL) 06/12/21 04:28 RBC Morphology Abnormal (NORMAL) A 06/12/21 04:28 Hypochromasia 1+ A 06/12/21 04:28 Anisocytosis 1+ A 06/12/21 04:28 Target Cells Slight A 06/11/21 17:54 Tear Drop Cells Slight A 06/11/21 17:54 Ovalocytes Slight A 06/11/21 17:54 D-Dimer 8.51 ug/ml (0.0-0.57) H* 06/11/21 17:54 D-Dimer Cancelled 06/11/21 17:54 Sodium 141 mmol/L (136-145) 06/13/21 06:21 Corrected Sodium 141 mmol/L (136-145) 06/13/21 06:21 Potassium 4.1 mmol/L (3.5-5.1) 06/13/21 06:21 Chloride 105 mmol/L (98-107) 06/13/21 06:21 Carbon Dioxide 19.9 mmol/L (21-32) L 06/13/21 06:21 BUN 44 mg/dL (7-18) H 06/13/21 06:21 Creatinine 1.38 mg/dL (0.55-1.02) H 06/13/21 06:21 Est GFR (MDRD) Af Amer 48 (>60) L 06/13/21 06:21 Est GFR (MDRD) Non-Af 40 (>60) L 06/13/21 06:21 Glucose 118 mg/dL (65-99) H 06/13/21 06:21 Calcium 8.4 mg/dL (8.5-10.1) L 06/13/21 06:21 Corrected Calcium 9.9 mg/dL (8.5-10.1) 06/13/21 06:21 Total Bilirubin 0.40 mg/dL (0.2-1.0) 06/13/21 06:21 AST 49 Units/L (15-37) H 06/13/21 06:21 ALT 13 Units/L (12-78) 06/13/21 06:21 Alkaline Phosphatase 356 Units/L (46-116) H 06/13/21 06:21 Creatine Kinase 99 Units/L (26-192) 06/13/21 06:21 CK-MB (CK-2) 1.8 ng/mL (0-4.0) 06/13/21 06:21 CK/CKMB % Calc 1.8 % (<4) 06/13/21 06:21 Troponin I High Sens 174.4 ng/L (4.0-60.0) H* 06/13/21 06:21 C-Reactive Protein 162.50 mg/L (0-3.0) H 06/13/21 06:21 B-Natriuretic Peptide 289 pg/mL (0-79) H 06/13/21 06:21 Total Protein 6.4 g/dL (6.4-8.2) 06/13/21 06:21 Albumin 2.1 g/dL (3.4-5.0) L 06/13/21 06:21 Globulin 4.3 g/dL (2.5-4.5) 06/13/21 06:21 Albumin/Globulin Ratio 0.5 Ratio (1.1-2.1) L 06/13/21 06:21 Amylase 48 Units/L (25-115) 06/12/21 04:28 Lipase 51 Units/L (73-393) L 06/12/21 04:28 Specimen Type Clean catch urine 06/11/21 18:58 Urine Color Yellow (YELLOW) 06/11/21 18:58 Urine Appearance Clear (CLEAR) 06/11/21 18:58 Urine pH 5.0 (5.0 - 8.0) 06/11/21 18:58 Ur Specific [place] 1.020 (1.000-1.030) 06/11/21 18:58 Urine Protein 3+ (NEGATIVE) 06/11/21 18:58 Urine Glucose (UA) Negative (NEGATIVE) 06/11/21 18:58 Urine Ketones 3+ (NEGATIVE) 06/11/21 18:58 Urine Occult Blood 1+ (NEGATIVE) 06/11/21 18:58 Urine Nitrite Negative (NEGATIVE) 06/11/21 18:58 Urine Bilirubin 1+ (NEGATIVE) 06/11/21 18:58 Urine Urobilinogen Normal (NORMAL) 06/11/21 18:58 Ur Leukocyte Esterase 1+ (NEGATIVE) 06/11/21 18:58 Urine RBC 0-2 /HPF (0-3) 06/11/21 18:58 Urine WBC 0-2 /HPF (0-5) 06/11/21 18:58 Ur Squamous Epith Cells Few /HPF (NEGATIVE) 06/11/21 18:58 Urine Bacteria 1+ /HPF (NEGATIVE) 06/11/21 18:58 Hyaline Casts Many /LPF (NEGATIVE) 06/11/21 18:58 Ur Culture Indicated? Yes/culture set up 06/11/21 18:58 SARS CoV-2 RNA Rapid ALY Positive (NEGATIVE) A 06/11/21 15:58 - Plan (1) COVID-19 Status: Acute Plan: NORMAL SALINE AT KVO, ZOSYN 3.375G IV TID, LOVENOX 30MG SC BID, SOLU- MEDROL 40MG IV Q8H, MORPHINE 1-2MG IV Q4H PRN, PHENERGAN 25MG IM Q6H PRN, AND ZOFRAN 4MG IV Q6H PRN, (2) Abdominal pain Status: Acute Qualifiers: Abdominal location: generalized Qualified Code(s): R10.84 - Generalized abdominal pain (3) Intractable nausea and vomiting Status: Acute (4) Metastatic disease Status: Acute Qualifiers: Area of secondary neoplastic involvement: unspecified site Qualified Code(s): C79.9 - Secondary malignant neoplasm of unspecified site
--- NOTE | 2021-06-13 14:29 | RAD ---
HISTORYNG TUBE PLACEMENTSTUDYKUBCOMPARISONPrevious KUB from 11:46 a.m.Single supine radiograph of the abdomenFINDINGSNasogastric tube position is virtually unchanged. The tip lies along the greater curvature of the proximal stomach and the side port is positioned at the GE junction. Contrast is now being excreted into the urinary bladder. Re-demonstrated are distended central small bowel segments. Left basilar airspace opacity is observed in keeping with pleural effusion and/or atelectasis when compared to recent CT.IMPRESSIONThe nasogastric tube terminates within the proximal stomach along the greater curvature, and the side port terminates at the GE junction. Recommend advancement of at least 7 cm.Persistent small bowel distension, as previously described, suggestive of probable small bowel obstruction. Please refer to separate CT reportAdditional findings as aboveElectronically signed by: MOISES RICHEY (Jun 13, 2021 14:29:05)
--- NOTE | 2021-06-13 16:48 | RAD ---
HISTORYREPOSITIONING OF NG TUBE, CHECK PLACEMENTSTUDYKUB x-ray abdomen one viewCOMPARISONX-ray 06/13/2021FINDINGSNasogastric tube tip and side hole are in the region of the body of the stomach directed towards the antrum. Probable small bowel obstruction is seen with small-bowel loops dilated up to 4.9 cm in diameter, similar to prior study. There is excretion of contrast from the kidneys. There is mass effect upon the urinary bladder that may be from dilated bowel in the pelvis.IMPRESSIONNasogastric tube tip and side hole appear appropriately positioned in the body of the stomach.Electronically signed by: Jaron Hall (Jun 13, 2021 16:46:43)
[2021-06-13] MEDS ORDERED: TOPROL XL PO SCH (21:00)
[2021-06-13] MEDS: LOVENOX INJ 30 MG SYR SC SCH (22:22)
[2021-06-13] MEDS: NS 1,000 ML IV 1,000 ML IV SCH (22:23)
[2021-06-14] MEDS: CLINIMIX 5 %/20 % 1,000 ML with MVI INJ (ADULT) 10 ML, NovoLIN R (or HumuLIN R) 10 UNITS IV SCH ×9 (00:03→21:18)
[2021-06-14 05:25] LABS: BASOPHILS % (AUTO) 0.1 % (0.2-1.0); HEMATOCRIT 23.7 % (36.0-47.0); LYMPHOCYTES # (AUTO) 0.2 X10^3/uL (1.3-2.9); LYMPHOCYTES % (AUTO) 7.3 % (21.0-51.0); MEAN CORPUSCULAR HEMOGLOBIN 28.2 pg (27.0-34.0); MEAN CORPUSCULAR HGB CONC 33.8 g/dL (33.0-35.0); MEAN CORPUSCULAR VOLUME 83.6 fL (80.0-100.0); MEAN PLATELET VOLUME 7.3 fL (7.4-11.0); MONOCYTES # (AUTO) 0.2 x10^3/uL (0.3-0.8); MONOCYTES % (AUTO) 5.8 % (0.0-13.0); NEUTROPHILS # (AUTO) 2.9 x10^3/uL (2.2-4.8); NEUTROPHILS % (AUTO) 86.8 % (42.0-75.0); PREALBUMIN 9.4 mg/dL (18-35.7); RED BLOOD COUNT 2.83 X10^6/uL (3.5-5.4); RED CELL DISTRIBUTION WIDTH 17.6 % (11.6-16.5); WHITE BLOOD COUNT 3.4 X10^3/uL (3.6-10.0)
[2021-06-14] MEDS: ZOSYN VIAL 3.375 GRAMS 3.375 G in NS 100 ML IV + SPIKE MINIBAG* 100 ML IV SCH ×3 (05:33→21:18)
[2021-06-14] MEDS: SOLU-Medrol 40 MG VIAL IVP SCH ×3 (05:34→21:19)
[2021-06-14 05:42] LABS: CALCIUM 8.1 mg/dL (8.5-10.1); CARBON DIOXIDE 21.6 mmol/L (21-32); COR CA(FOR HYPOALB) 9.7 mg/dL (8.5-10.1); CREATININE 1.61 mg/dL (0.55-1.02); TOTAL PROTEIN 6.2 g/dL (6.4-8.2)
--- NOTE | 2021-06-14 06:31 | RAD ---
HISTORYFollow-up small bowel [id number]/26/2022 .br.br.br.br Multiple dilated loops of small bowel are again identified in the mid abdomen with only a small amount of gas distally. Findings continue to be suggestive of small-bowel obstruction. No abnormal masses or abnormal calcifications are identified. Regional skeleton is intact.IMPRESSIONFindings consistent with small-bowel obstruction, unchangedElectronically signed by: ILSA SILVERIO (Jun 14, 2021 06:30:11)
--- NOTE | 2021-06-14 06:38 | RAD ---
HISTORYShortness of breathSTUDYChest AP pynxkcbdLMHUYUDGHY20/26/2022FINDINGSTher e is a port present on the right. There is a nasogastric tube within the stomach. Heart size difficult to assess due to obscuration of the left heart border by a large left pleural effusion which is unchanged. The effusion also obscures the lung markings in the left lower lobe. Remainder of the lung francois are clear. Bony thorax is unremarkable.IMPRESSIONNo change large left pleural effusion obscuring the lung markings in the left lower lobeElectronically signed by: ILSA SILVERIO (Jun 14, 2021 06:36:16)
[2021-06-14] MEDS: IVERMECTIN PO SCH (08:10)
[2021-06-14] MEDS: LUVOX PO SCH (08:11)
[2021-06-14] MEDS: PLAVIX PO SCH (08:11)
[2021-06-14] MEDS: LASIX IVP SCH ×3 (08:11→09:48)
[2021-06-14] MEDS: LOVENOX INJ 30 MG SYR SC SCH ×3 (08:11→21:19)
[2021-06-14] MEDS: ALBUMIN HUMAN 25%- 100 ML 100 ML IV SCH (09:47)
--- NOTE | 2021-06-14 10:10 | PCM.PROG ---
Progress Note - Progress Note for Day of Date of Exam: 06/14/21 - Subjective Subjective: WAS ADMITTED FOR TREATMENT OF COVID-19 AND A SMALL BOWEL OBSTRUCTION. SHE HAS A HISTORY OF METASTATIC DISEASE. PATIENT ALSO RECENTLY UNDERWENT RECENT STENT PLACEMENT IN CORONARY ARTERY ABOUT A MONTH AGO. TODAY, SHE IS LYING IN BED WITH EYES CLOSED ON MORNING ROUNDS. SHE AWAKENS AND RESPONDS TO VERBAL STIMULI. SHE REPORTS INTERMITTENT ABDOMINAL PAIN TODAY, BUT REPORTS IMPROVEMENT SINCE NG TUBE WAS INSERTED. ON EXAMINATION, NG TUBE IS NOTED TO LOW INTERMITTENT SUCTION. HEART IS REGULAR IN RATE AND RHYTHM. BILATERAL LUNGS NOTED WITH DIMINISHED LUNG SOUNDS THROUGHOUT. ABDOMEN IS FLAT, SOFT, AND NOTED WITH DIFFUSE TENDERNESS. DECREASED BOWEL SOUNDS NOTED. HER VITALS THIS MORNING ARE: 97.9-93-14-96%-117/61. LABS WERE OBTAINED. ABNORMAL LAB VALUES INCLUDE THE FOLLOWING: WBC 3.4, RBC 2.83, HGB 8.0, HCT 23.7, BUN 50, CREATININE 1.61, GLUCOSE 161, CALCIUM 8.1, AST 40, ALK PHOS 336, CRP 185.80, BNP 267, TOTAL PROTEIN 6.2, ALBUMIN 2.0. TODAYS CHEST XRAY REVEALED: No change large left pleural effusion obscuring the lung markings in the left lower lobe. KUB REVEALED: Findings consistent with small-bowel obstruction, unchanged. SHE IS CURRENTLY RECEIVING NORMAL SALINE, TPN, ALBUMIN, ZOSYN 3.375G IV TID, LOVENOX 30MG SC BID, SOLU-MEDROL 40MG IV Q8H, MORPHINE 1-2MG IV Q4H PRN, PHENERGAN 25MG IM Q6H PRN, AND ZOFRAN 4MG IV Q6H PRN. WE WILL CONTINUE WITH CURRENT PLAN OF CARE TODAY. PATIENT WILL REMAIN NPO. OTHERWISE, WE PLAN TO FOLLOW UP WITH AM LABS AND KUB AND CONTINUE TO MONITOR. TIME SPENT ON CLINICAL ASSESSMENT, REVIEWING LABS AND IMAGING, DECISION MAKING, AND DOCUMENTATION GREATER THAN 45 MINUTES. - Past Medical Family Social History Past Med/Fam/Surg Hx: No changes since H&P Allergies: Allergies meperidine [From Demerol] Adverse Reaction (Mild, Verified 06/11/21 17:34) NAUSEA severe nausea - Review of Systems ROS: No change since H&P - Vital Signs and I&O's Vital Signs: Temperature 97.9 F Pulse Rate [Left] 93 Respiratory Rate 14 Blood Pressure [Right Arm] 117/61 O2 Sat by Pulse Oximetry 96 Intake and Output: Intake & Output 06/11/21 06/12/21 06/13/21 06/14/21 11:59 11:59 11:59 11:59 Intake Total 550 / 550 500 / 500 960 / 960 Output Total 400 / 400 50 / 50 40 / 40 Balance 150 / 150 450 / 450 920 / 920 - Physical Exam Oriented: Normal Eyes: Normal Ear: Normal Nose: Normal Throat: Normal Respiratory: Generalized, Diminished Cardiovascular: Normal : Normal Auscultation: Bowel Sounds: Decreased Tenderness: Diffuse, Moderate Skin: Decreased Turgur Musculoskeletal: Normal Psychiatric: Normal Mood Description: Calm Affect: Normal Speech Pattern: Clear, Appropriate - Laboratory and Diagnostics Result Diagrams: 06/14/21 04:30 06/14/21 04:30 Labs: 06/11/21 18:58 Urine,Clean Catch Urine Culture - Final Laboratory WBC 3.4 X10^3/uL (3.6-10.0) L 06/14/21 04:30 RBC 2.83 X10^6/uL (3.5-5.4) L 06/14/21 04:30 Hgb 8.0 g/dL (12.0-16.0) L 06/14/21 04:30 Hct 23.7 % (36.0-47.0) L 06/14/21 04:30 MCV 83.6 fL (80.0-100.0) 06/14/21 04:30 MCH 28.2 pg (27.0-34.0) 06/14/21 04:30 MCHC 33.8 g/dL (33.0-35.0) 06/14/21 04:30 RDW 17.6 % (11.6-16.5) H 06/14/21 04:30 Plt Count 216 X10^3/uL (150.0-450.0) 06/14/21 04:30 Plt Count Comment Adequate (ADEQUATE) 06/12/21 04:28 MPV 7.3 fL (7.4-11.0) L 06/14/21 04:30 Neut % (Auto) 86.8 % (42.0-75.0) H 06/14/21 04:30 Lymph % (Auto) 7.3 % (21.0-51.0) L 06/14/21 04:30 [place] % (Auto) 5.8 % (0.0-13.0) 06/14/21 04:30 Eos % (Auto) 0.0 % (0.9-2.9) L 06/14/21 04:30 Baso % (Auto) 0.1 % (0.2-1.0) L 06/14/21 04:30 Neut # (Auto) 2.9 x10^3/uL (2.2-4.8) 06/14/21 04:30 Lymph # (Auto) 0.2 X10^3/uL (1.3-2.9) L 06/14/21 04:30 [place] # (Auto) 0.2 x10^3/uL (0.3-0.8) L 06/14/21 04:30 Eos # (Auto) 0.0 x10^3/uL (0.0-0.2) 06/14/21 04:30 Baso # (Auto) 0.0 X10^3/uL (0.0-0.1) 06/14/21 04:30 Absolute Nucleated RBC 0.1 /100WBC 06/14/21 04:30 Total Counted 100 06/12/21 04:28 Neutrophils % (Manual) 80 % (39-76) H 06/12/21 04:28 Lymphocytes % (Manual) 14 % (13-43) 06/12/21 04:28 Monocytes % (Manual) 6 % (4-9) 06/12/21 04:28 Plt Morphology Comment Normal (NORMAL) 06/12/21 04:28 RBC Morphology Abnormal (NORMAL) A 06/12/21 04:28 Hypochromasia 1+ A 06/12/21 04:28 Anisocytosis 1+ A 06/12/21 04:28 Target Cells Slight A 06/11/21 17:54 Tear Drop Cells Slight A 06/11/21 17:54 Ovalocytes Slight A 06/11/21 17:54 D-Dimer 8.51 ug/ml (0.0-0.57) H* 06/11/21 17:54 D-Dimer Cancelled 06/11/21 17:54 Sodium 143 mmol/L (136-145) 06/14/21 04:30 Corrected Sodium 144 mmol/L (136-145) 06/14/21 04:30 Potassium 3.9 mmol/L (3.5-5.1) 06/14/21 04:30 Chloride 107 mmol/L (98-107) 06/14/21 04:30 Carbon Dioxide 21.6 mmol/L (21-32) 06/14/21 04:30 BUN 50 mg/dL (7-18) H 06/14/21 04:30 Creatinine 1.61 mg/dL (0.55-1.02) H 06/14/21 04:30 Est GFR (MDRD) Af Amer 41 (>60) L 06/14/21 04:30 Est GFR (MDRD) Non-Af 34 (>60) L 06/14/21 04:30 Glucose 161 mg/dL (65-99) H 06/14/21 04:30 POC Glucose (mg/dL) 165 mg/dL (65-99) H 06/14/21 08:34 Calcium 8.1 mg/dL (8.5-10.1) L 06/14/21 04:30 Corrected Calcium 9.7 mg/dL (8.5-10.1) 06/14/21 04:30 Total Bilirubin 0.30 mg/dL (0.2-1.0) 06/14/21 04:30 AST 40 Units/L (15-37) H 06/14/21 04:30 ALT 14 Units/L (12-78) 06/14/21 04:30 Alkaline Phosphatase 336 Units/L (46-116) H 06/14/21 04:30 Creatine Kinase 99 Units/L (26-192) 06/13/21 06:21 CK-MB (CK-2) 1.8 ng/mL (0-4.0) 06/13/21 06:21 CK/CKMB % Calc 1.8 % (<4) 06/13/21 06:21 Troponin I High Sens 174.4 ng/L (4.0-60.0) H* 06/13/21 06:21 C-Reactive Protein 185.80 mg/L (0-3.0) H 06/14/21 04:30 B-Natriuretic Peptide 267 pg/mL (0-79) H 06/14/21 04:30 Total Protein 6.2 g/dL (6.4-8.2) L 06/14/21 04:30 Albumin 2.0 g/dL (3.4-5.0) L 06/14/21 04:30 Globulin 4.2 g/dL (2.5-4.5) 06/14/21 04:30 Albumin/Globulin Ratio 0.5 Ratio (1.1-2.1) L 06/14/21 04:30 Prealbumin 9.4 mg/dL (18-35.7) L 06/14/21 04:30 Amylase 48 Units/L (25-115) 06/12/21 04:28 Lipase 51 Units/L (73-393) L 06/12/21 04:28 Specimen Type Clean catch urine 06/11/21 18:58 Urine Color Yellow (YELLOW) 06/11/21 18:58 Urine Appearance Clear (CLEAR) 06/11/21 18:58 Urine pH 5.0 (5.0 - 8.0) 06/11/21 18:58 Ur Specific [place] 1.020 (1.000-1.030) 06/11/21 18:58 Urine Protein 3+ (NEGATIVE) 06/11/21 18:58 Urine Glucose (UA) Negative (NEGATIVE) 06/11/21 18:58 Urine Ketones 3+ (NEGATIVE) 06/11/21 18:58 Urine Occult Blood 1+ (NEGATIVE) 06/11/21 18:58 Urine Nitrite Negative (NEGATIVE) 06/11/21 18:58 Urine Bilirubin 1+ (NEGATIVE) 06/11/21 18:58 Urine Urobilinogen Normal (NORMAL) 06/11/21 18:58 Ur Leukocyte Esterase 1+ (NEGATIVE) 06/11/21 18:58 Urine RBC 0-2 /HPF (0-3) 06/11/21 18:58 Urine WBC 0-2 /HPF (0-5) 06/11/21 18:58 Ur Squamous Epith Cells Few /HPF (NEGATIVE) 06/11/21 18:58 Urine Bacteria 1+ /HPF (NEGATIVE) 06/11/21 18:58 Hyaline Casts Many /LPF (NEGATIVE) 06/11/21 18:58 Ur Culture Indicated? Yes/culture set up 06/11/21 18:58 SARS CoV-2 RNA Rapid ALY Positive (NEGATIVE) A 06/11/21 15:58 - Plan (1) COVID-19 Status: Acute Plan: NORMAL SALINE AT KVO, ZOSYN 3.375G IV TID, LOVENOX 30MG SC BID, SOLU- MEDROL 40MG IV Q8H, MORPHINE 1-2MG IV Q4H PRN, PHENERGAN 25MG IM Q6H PRN, AND ZOFRAN 4MG IV Q6H PRN, (2) Small bowel obstruction Status: Acute Plan: NG TUBE TO LOW INTERMITTENT SUCTION (3) Abdominal pain Status: Acute Qualifiers: Abdominal location: generalized Qualified Code(s): R10.84 - Generalized abdominal pain (4) Intractable nausea and vomiting Status: Acute (5) Metastatic disease Status: Acute Qualifiers: Area of secondary neoplastic involvement: unspecified site Qualified Code(s): C79.9 - Secondary malignant neoplasm of unspecified site
[2021-06-14] MEDS: ZOFRAN INJ 4 MG VIAL IVP PRN (12:27)
[2021-06-14] MEDS: MORPHINE SULFATE INJ 2 MG INJ IVP PRN (12:28)
[2021-06-14] MEDS: NS 1,000 ML IV 1,000 ML IV SCH (22:12)
[2021-06-15 05:41] LABS: BASOPHILS % (AUTO) 0.1 % (0.2-1.0); HEMATOCRIT 22.9 % (36.0-47.0); HEMOGLOBIN 7.6 g/dL (12.0-16.0); LYMPHOCYTES # (AUTO) 0.3 X10^3/uL (1.3-2.9); LYMPHOCYTES % (AUTO) 8.4 % (21.0-51.0); MEAN CORPUSCULAR HGB CONC 33.2 g/dL (33.0-35.0); MEAN CORPUSCULAR VOLUME 84.5 fL (80.0-100.0); MEAN PLATELET VOLUME 7.4 fL (7.4-11.0); MONOCYTES # (AUTO) 0.2 x10^3/uL (0.3-0.8); MONOCYTES % (AUTO) 5.3 % (0.0-13.0); NEUTROPHILS # (AUTO) 3.3 x10^3/uL (2.2-4.8); NEUTROPHILS % (AUTO) 86.2 % (42.0-75.0); RED BLOOD COUNT 2.72 X10^6/uL (3.5-5.4); RED CELL DISTRIBUTION WIDTH 18.2 % (11.6-16.5); WHITE BLOOD COUNT 3.8 X10^3/uL (3.6-10.0)
[2021-06-15 05:55] LABS: ALBUMIN 2.4 g/dL (3.4-5.0); CALCIUM 8.1 mg/dL (8.5-10.1); COR CA(FOR HYPOALB) 9.4 mg/dL (8.5-10.1); CREATININE 1.53 mg/dL (0.55-1.02); TOTAL PROTEIN 6.4 g/dL (6.4-8.2)
[2021-06-15] MEDS: ZOSYN VIAL 3.375 GRAMS 3.375 G in NS 100 ML IV + SPIKE MINIBAG* 100 ML IV SCH ×3 (06:18→21:57)
[2021-06-15] MEDS: SOLU-Medrol 40 MG VIAL IVP SCH ×3 (06:18→21:57)
--- NOTE | 2021-06-15 07:08 | RAD ---
HISTORYSOBSTUDYCHEST, 1 [id number]/20/2022.TECHNIQUEAP view of the chestFINDINGSRight chest wall port is present with tip in decent position just within the right atrium. NG tube curls within the stomach with the tip below the visualized field of view. The left heart border is silhouetted. Right heart border and mediastinal contours appear normal. Stable opacification of the mid inferior left sylvester thorax. Subtle right base nodular opacities with blunted right costophrenic sulcus. No discernible pneumothoraxIMPRESSIONNo significant change compared to prior. Opacification of the mid to inferior left sylvester thorax likely due to a moderate pleural effusion. Small right pleural effusions suspected. Known pulmonary metastasis.Electronically signed by: Carlos Eduardo Christian (Jun 15, 2021 07:07:04)
--- NOTE | 2021-06-15 07:13 | RAD ---
HISTORYSmall-bowel mlrfnojwBOWRCGGXEMIZGLRABW72/27/2022 .br.br.br mildly dilated loops of small bowel are present in the lower mid abdomen unchanged from the prior examination. There is some gas distally within the colon. Findings are suggestive of partial small bowel obstruction and are unchanged from the prior examination. No abnormal masses or abnormal calcifications are identified. Regional skeleton is intact.IMPRESSIONFindings suggestive of partial small bowel obstruction unchanged when compared with the prior examinationElectronically signed by: ILSA SILVERIO (Jun 15, 2021 07:12:41)
[2021-06-15] MEDS: CLINIMIX 5 %/20 % 1,000 ML with MVI INJ (ADULT) 10 ML, NovoLIN R (or HumuLIN R) 10 UNITS IV SCH ×6 (09:09)
[2021-06-15] MEDS: ALBUMIN HUMAN 25%- 100 ML 100 ML IV SCH (09:26)
[2021-06-15] MEDS: LOVENOX INJ 30 MG SYR SC SCH ×2 (09:28→21:56)
--- NOTE | 2021-06-15 10:17 | PCM.PROG ---
Progress Note - Progress Note for Day of Date of Exam: 06/15/21 - Subjective Subjective: WAS ADMITTED FOR TREATMENT OF COVID-19 AND A SMALL BOWEL OBSTRUCTION. SHE HAS A HISTORY OF METASTATIC DISEASE. PATIENT ALSO RECENTLY UNDERWENT RECENT STENT PLACEMENT IN CORONARY ARTERY ABOUT A MONTH AGO. TODAY, SHE IS LYING IN BED WITH EYES CLOSED ON MORNING ROUNDS. SHE AWAKENS AND RESPONDS TO VERBAL STIMULI. SHE REPORTS INTERMITTENT ABDOMINAL PAIN TODAY, BUT REPORTS IMPROVEMENT SINCE NG TUBE WAS INSERTED. THERE HAS BEEN MINIMAL OUTPUT FROM NG TUBE SINCE INSERTION. ON EXAMINATION, NG TUBE IS NOTED TO LOW INTERMITTENT SUCTION. HEART IS REGULAR IN RATE AND RHYTHM. BILATERAL LUNGS NOTED WITH DIMINISHED LUNG SOUNDS THROUGHOUT. ABDOMEN IS FLAT, SOFT, AND NOTED WITH DIFFUSE TENDERNESS. DECREASED BOWEL SOUNDS NOTED. HER VITALS THIS MORNING ARE: 98.2-94-15-97%-110/64. LABS WERE OBTAINED. ABNORMAL LAB VALUES INCLUDE THE FOLLOWING: RBC 2.72, HGB 7.6, HCT 22.9, CHLORIDE 108, BUN 58, CREATININE 1.53, GLUCOE 172, CALCIUM 8.1, ALT 11, ALK PHOS 317, TROPONIN 135.3, CRP 123, BNP 382, ALBUMIN 2.4. TODAYS CHEST XRAY REVEALED: No significant change compared to prior. Opacification of the mid to inferior left sylvester thorax likely due to a moderate pleural effusion. Small right pleural effusions suspected. Known pulmonary metastasis. KUB REVEALED: Findings suggestive of partial small bowel obstruction unchanged when compared with the prior examination. SHE IS CURRENTLY RECEIVING NORMAL SALINE, TPN, ALBUMIN, ZOSYN 3.375G IV TID, LOVENOX 30MG SC BID, SOLU-MEDROL 40MG IV Q8H, MORPHINE 1-2MG IV Q4H PRN, PHENERGAN 25MG IM Q6H PRN, AND ZOFRAN 4MG IV Q6H PRN. WE WILL CLAMP THE NG TUBE TODAY TO SEE HOW SHE TOLERATES. PATIENT WILL REMAIN NPO. OTHERWISE, WE PLAN TO FOLLOW UP WITH AM LABS AND KUB AND CONTINUE TO MONITOR. TIME SPENT ON CLINICAL ASSESSMENT, REVIEWING LABS AND IMAGING, DECISION MAKING, AND DOCUMENTATION GREATER THAN 45 MINUTES. - Past Medical Family Social History Past Med/Fam/Surg Hx: No changes since H&P Allergies: Allergies meperidine [From Demerol] Adverse Reaction (Mild, Verified 06/11/21 17:34) NAUSEA severe nausea - Review of Systems ROS: No change since H&P - Vital Signs and I&O's Vital Signs: Temperature 98.2 F Pulse Rate [Left] 94 Respiratory Rate 15 Blood Pressure [Right Arm] 110/64 O2 Sat by Pulse Oximetry 97 Intake and Output: Intake & Output 06/12/21 06/13/21 06/14/21 06/15/21 11:59 11:59 11:59 11:59 Intake Total 550 / 550 500 / 500 960 / 960 1924 / 1924 Output Total 400 / 400 50 / 50 40 / 40 50 / 50 Balance 150 / 150 450 / 450 920 / 920 1874 / 1874 - Physical Exam Oriented: Normal Eyes: Normal Ear: Normal Nose: Normal Throat: Normal Respiratory: Generalized, Diminished Cardiovascular: Normal : Normal Auscultation: Bowel Sounds: Decreased Palpation: Normal Tenderness: Diffuse, Moderate Skin: Decreased Turgur Musculoskeletal: Normal Psychiatric: Normal Mood Description: Calm Affect: Normal Speech Pattern: Clear, Appropriate - Laboratory and Diagnostics Result Diagrams: 06/15/21 04:41 06/15/21 04:41 Labs: 06/11/21 18:58 Urine,Clean Catch Urine Culture - Final Laboratory WBC 3.8 X10^3/uL (3.6-10.0) 06/15/21 04:41 RBC 2.72 X10^6/uL (3.5-5.4) L 06/15/21 04:41 Hgb 7.6 g/dL (12.0-16.0) L 06/15/21 04:41 Hct 22.9 % (36.0-47.0) L 06/15/21 04:41 MCV 84.5 fL (80.0-100.0) 06/15/21 04:41 MCH 28.0 pg (27.0-34.0) 06/15/21 04:41 MCHC 33.2 g/dL (33.0-35.0) 06/15/21 04:41 RDW 18.2 % (11.6-16.5) H 06/15/21 04:41 Plt Count 162 X10^3/uL (150.0-450.0) 06/15/21 04:41 Plt Count Comment Adequate (ADEQUATE) 06/12/21 04:28 MPV 7.4 fL (7.4-11.0) 06/15/21 04:41 Neut % (Auto) 86.2 % (42.0-75.0) H 06/15/21 04:41 Lymph % (Auto) 8.4 % (21.0-51.0) L 06/15/21 04:41 [place] % (Auto) 5.3 % (0.0-13.0) 06/15/21 04:41 Eos % (Auto) 0.0 % (0.9-2.9) L 06/15/21 04:41 Baso % (Auto) 0.1 % (0.2-1.0) L 06/15/21 04:41 Neut # (Auto) 3.3 x10^3/uL (2.2-4.8) 06/15/21 04:41 Lymph # (Auto) 0.3 X10^3/uL (1.3-2.9) L 06/15/21 04:41 [place] # (Auto) 0.2 x10^3/uL (0.3-0.8) L 06/15/21 04:41 Eos # (Auto) 0.0 x10^3/uL (0.0-0.2) 06/15/21 04:41 Baso # (Auto) 0.0 X10^3/uL (0.0-0.1) 06/15/21 04:41 Absolute Nucleated RBC 0.1 /100WBC 06/15/21 04:41 Total Counted 100 06/12/21 04:28 Neutrophils % (Manual) 80 % (39-76) H 06/12/21 04:28 Lymphocytes % (Manual) 14 % (13-43) 06/12/21 04:28 Monocytes % (Manual) 6 % (4-9) 06/12/21 04:28 Plt Morphology Comment Normal (NORMAL) 06/12/21 04:28 RBC Morphology Abnormal (NORMAL) A 06/12/21 04:28 Hypochromasia 1+ A 06/12/21 04:28 Anisocytosis 1+ A 06/12/21 04:28 Target Cells Slight A 06/11/21 17:54 Tear Drop Cells Slight A 06/11/21 17:54 Ovalocytes Slight A 06/11/21 17:54 D-Dimer 6.72 ug/ml (0.0-0.57) H* 06/15/21 04:41 Sodium 143 mmol/L (136-145) 06/15/21 04:41 Corrected Sodium 145 mmol/L (136-145) 06/15/21 04:41 Potassium 3.7 mmol/L (3.5-5.1) 06/15/21 04:41 Chloride 108 mmol/L (98-107) H 06/15/21 04:41 Carbon Dioxide 23.0 mmol/L (21-32) 06/15/21 04:41 BUN 58 mg/dL (7-18) H 06/15/21 04:41 Creatinine 1.53 mg/dL (0.55-1.02) H 06/15/21 04:41 Est GFR (MDRD) Af Amer 43 (>60) L 06/15/21 04:41 Est GFR (MDRD) Non-Af 36 (>60) L 06/15/21 04:41 Glucose 172 mg/dL (65-99) H 06/15/21 04:41 POC Glucose (mg/dL) 173 mg/dL (65-99) H 06/14/21 23:55 Calcium 8.1 mg/dL (8.5-10.1) L 06/15/21 04:41 Corrected Calcium 9.4 mg/dL (8.5-10.1) 06/15/21 04:41 Total Bilirubin 0.30 mg/dL (0.2-1.0) 06/15/21 04:41 AST 30 Units/L (15-37) 06/15/21 04:41 ALT 11 Units/L (12-78) L 06/15/21 04:41 Alkaline Phosphatase 317 Units/L (46-116) H 06/15/21 04:41 Creatine Kinase 99 Units/L (26-192) 06/13/21 06:21 CK-MB (CK-2) 1.8 ng/mL (0-4.0) 06/13/21 06:21 CK/CKMB % Calc 1.8 % (<4) 06/13/21 06:21 Troponin I High Sens 135.3 ng/L (4.0-60.0) H* 06/15/21 04:41 C-Reactive Protein 123.00 mg/L (0-3.0) H 06/15/21 04:41 B-Natriuretic Peptide 382 pg/mL (0-79) H 06/15/21 04:41 Total Protein 6.4 g/dL (6.4-8.2) 06/15/21 04:41 Albumin 2.4 g/dL (3.4-5.0) L 06/15/21 04:41 Globulin 4.0 g/dL (2.5-4.5) 06/15/21 04:41 Albumin/Globulin Ratio 0.6 Ratio (1.1-2.1) L 06/15/21 04:41 Prealbumin 9.4 mg/dL (18-35.7) L 06/14/21 04:30 Amylase 48 Units/L (25-115) 06/12/21 04:28 Lipase 51 Units/L (73-393) L 06/12/21 04:28 Specimen Type Clean catch urine 06/11/21 18:58 Urine Color Yellow (YELLOW) 06/11/21 18:58 Urine Appearance Clear (CLEAR) 06/11/21 18:58 Urine pH 5.0 (5.0 - 8.0) 06/11/21 18:58 Ur Specific [place] 1.020 (1.000-1.030) 06/11/21 18:58 Urine Protein 3+ (NEGATIVE) 06/11/21 18:58 Urine Glucose (UA) Negative (NEGATIVE) 06/11/21 18:58 Urine Ketones 3+ (NEGATIVE) 06/11/21 18:58 Urine Occult Blood 1+ (NEGATIVE) 06/11/21 18:58 Urine Nitrite Negative (NEGATIVE) 06/11/21 18:58 Urine Bilirubin 1+ (NEGATIVE) 06/11/21 18:58 Urine Urobilinogen Normal (NORMAL) 06/11/21 18:58 Ur Leukocyte Esterase 1+ (NEGATIVE) 06/11/21 18:58 Urine RBC 0-2 /HPF (0-3) 06/11/21 18:58 Urine WBC 0-2 /HPF (0-5) 06/11/21 18:58 Ur Squamous Epith Cells Few /HPF (NEGATIVE) 06/11/21 18:58 Urine Bacteria 1+ /HPF (NEGATIVE) 06/11/21 18:58 Hyaline Casts Many /LPF (NEGATIVE) 06/11/21 18:58 Ur Culture Indicated? Yes/culture set up 06/11/21 18:58 SARS CoV-2 RNA Rapid ALY Positive (NEGATIVE) A 06/11/21 15:58 - Plan (1) COVID-19 Status: Acute Plan: NORMAL SALINE AT KVO, ZOSYN 3.375G IV TID, LOVENOX 30MG SC BID, SOLU- MEDROL 40MG IV Q8H, MORPHINE 1-2MG IV Q4H PRN, PHENERGAN 25MG IM Q6H PRN, AND ZOFRAN 4MG IV Q6H PRN, (2) Small bowel obstruction Status: Acute Plan: NG TUBE TO LOW INTERMITTENT SUCTION (3) Abdominal pain Status: Acute Qualifiers: Abdominal location: generalized Qualified Code(s): R10.84 - Generalized abdominal pain (4) Intractable nausea and vomiting Status: Acute (5) Metastatic disease Status: Acute Qualifiers: Area of secondary neoplastic involvement: unspecified site Qualified Cod e(s): C79.9 - Secondary malignant neoplasm of unspecified site
[2021-06-15] MEDS: [UNRECOGNIZED DRUG - REMARK] IV SCH ×4 (16:00)
[2021-06-15] MEDS: NS 1,000 ML IV 1,000 ML IV SCH (17:34)
[2021-06-16 05:09] LABS: BASOPHILS % (AUTO) 0.1 % (0.2-1.0); HEMATOCRIT 22.7 % (36.0-47.0); HEMOGLOBIN 7.5 g/dL (12.0-16.0); LYMPHOCYTES # (AUTO) 0.5 X10^3/uL (1.3-2.9); LYMPHOCYTES % (AUTO) 9.1 % (21.0-51.0); MEAN CORPUSCULAR HGB CONC 33.1 g/dL (33.0-35.0); MEAN CORPUSCULAR VOLUME 84.5 fL (80.0-100.0); MEAN PLATELET VOLUME 7.3 fL (7.4-11.0); MONOCYTES # (AUTO) 0.3 x10^3/uL (0.3-0.8); MONOCYTES % (AUTO) 6.2 % (0.0-13.0); NEUTROPHILS # (AUTO) 4.3 x10^3/uL (2.2-4.8); NEUTROPHILS % (AUTO) 84.6 % (42.0-75.0); RED BLOOD COUNT 2.69 X10^6/uL (3.5-5.4); RED CELL DISTRIBUTION WIDTH 17.6 % (11.6-16.5); WHITE BLOOD COUNT 5.1 X10^3/uL (3.6-10.0)
[2021-06-16 05:29] LABS: ALANINE AMINOTRANSFERASE 11 Units/L (12-78); ALBUMIN 2.5 g/dL (3.4-5.0); ALKALINE PHOSPHATASE 334 Units/L (46-116); ASPARTATE AMINO TRANSFERASE 34 Units/L (15-37); BLOOD UREA NITROGEN 44 mg/dL (7-18); CALCIUM 8.1 mg/dL (8.5-10.1); CARBON DIOXIDE 23.4 mmol/L (21-32); CHLORIDE 110 mmol/L (98-107); COR CA(FOR HYPOALB) 9.3 mg/dL (8.5-10.1); COR NA(FOR HYPERGLY) 146 mmol/L (136-145); CREATININE 1.07 mg/dL (0.55-1.02); SODIUM 144 mmol/L (136-145); TOTAL PROTEIN 6.3 g/dL (6.4-8.2); eGFR NON BLACK RACES 54 (>60)
--- NOTE | 2021-06-16 06:05 | RAD ---
HISTORYSBOSTUDYKUBCOMPARISONJa [facility] [place] [facility] at 5:03 a.m.Supine radiograph of the abdomenFINDINGSNasogastric tube terminates in the distal stomach. There are a few gas-filled loops of central small bowel in the lower abdomen and pelvis which remain gas-filled and mildly distended though slightly improved in caliber from prior exam. No secondary signs of free air on the supine radiograph. There is increased density within the left lung base which may correspond to any combination of atelectasis, pleural effusion, and/or pneumonia.IMPRESSIONImproved but unresolved gassy distension of central small bowel loops in the lower abdomen and pelvis.Nasogastric tube terminates in the distal stomachPersistent left basilar opacity corresponding to any combination of atelectasis, pleural effusion, and/or pneumonia.Electronically signed by: MOISES RICHEY (Jun 16, 2021 06:04:25)
--- NOTE | 2021-06-16 06:06 | RAD ---
HISTORYSOB HX: LIVER AND COLON CANCER. ACTIVE CERVICAL CANCER, METS, CIRRHOSIS SX: ABD, APPENDECTOMY, BOWEL RESECTION, CABG, HYSTERECTOMY, MASTECTOMYSTUDYCHEST, 1 [id number] trachea is midline. Nasogastric tube coiled within the stomach unchanged. Right Port-A-Cath unchanged. The cardiac silhouette is obscured.. There is persistent opacification of the mid and lower left sylvester thorax due to atelectasis, consolidation and pleural effusion unchanged or minimally increased from prior study. The right lung is clear.. The bony thorax is unremarkable.IMPRESSIONPersistent opacification of the left mid and lower sylvester thorax due to atelectasis, consolidation and pleural effusion unchanged or minimally increased in size from previous 06/15/2021..Electronically signed by: James Wolff (Jun 16, 2021 06:05:19)
[2021-06-16] MEDS: ZOSYN VIAL 3.375 GRAMS 3.375 G in NS 100 ML IV + SPIKE MINIBAG* 100 ML IV SCH ×3 (06:17→22:01)
[2021-06-16] MEDS: SOLU-Medrol 40 MG VIAL IVP SCH ×3 (06:17→21:22)
[2021-06-16] MEDS: ALBUMIN HUMAN 25%- 100 ML 100 ML IV SCH (09:24)
[2021-06-16] MEDS: [UNRECOGNIZED DRUG - REMARK] IV SCH ×8 (09:25→10:00)
[2021-06-16] MEDS: LOVENOX INJ 30 MG SYR SC SCH ×2 (09:25→20:12)
--- NOTE | 2021-06-16 12:29 | PCM.PROG ---
Progress Note Progress Note for Day of Date of Exam: 06/16/21 Subjective Subjective: PT IS A 71 YEAR OLD FEMALE ADMITTED FOR TREATMENT OF COVID-19 AND A SMALL BOWEL OBSTRUCTION. SHE HAS A HISTORY OF METASTATIC DISEASE. PATIENT ALSO RECENTLY UNDERWENT RECENT STENT PLACEMENT IN CORONARY ARTERY ABOUT A MONTH AGO. THIS MORNING SHE REPORTS IMPROVEMENT IN HER ABDOMINAL PAIN, WELL NAUSEA. NG TUBE WAS REMOVED THIS MORNING. ON EXAMINATION, NG TUBE IS NOTED TO LOW INTERMITTENT SUCTION. HEART IS REGULAR IN RATE AND RHYTHM. BILATERAL LUNGS NOTED WITH DIMINISHED LUNG SOUNDS THROUGHOUT. ABDOMEN IS FLAT, SOFT, AND NOTED WITH MILD TENDERNESS. GOOD BOWEL SOUNDS NOTED. LABS/IMAGING: WBC 5.1, HGB 7.5, PLT 128, NA 144, K 3.5, CREATININE 1.07, GLUCOSE 181, CRP 70, TODAYS CHEST XRAY REVEALED: No significant change compared to prior. Opacification of the mid to inferior left sylvester thorax likely due to a moderate pleural effusion. Small right pleural effusions suspected. Known pulmonary metastasis. SHE IS CURRENTLY RECEIVING NORMAL SALINE, TPN, ALBUMIN, ZOSYN 3.375G IV TID, LOVENOX 30MG SC BID, SOLU-MEDROL 40MG IV Q8H, MORPHINE 1-2MG IV Q4H PRN, PHENERGAN 25MG IM Q6H PRN, AND ZOFRAN 4MG IV Q6H PRN. WILL ADVANCE DIET TO FULL LIQUIDS TODAY. OTHERWISE, CONTINUE TO MONITOR AND FOLLOW UP LABS/IMAGING IN THE MORNING. TIME SPENT ON CLINICAL ASSESSMENT, REVIEWING LABS AND IMAGING, DECISION MAKING, AND DOCUMENTATION GREATER THAN 45 MINUTES. Past Medical Family Social History Past Med/Fam/Surg Hx: No changes since H&P Allergies: Allergies meperidine [From Demerol] Adverse Reaction (Mild, Verified 06/11/21 17:34) NAUSEA severe nausea Review of Systems ROS: No change since H&P Vital Signs and I&O's Vital Signs: Temperature 97.9 F Pulse Rate [Left] 85 Respiratory Rate 12 Blood Pressure [Right Arm] 150/82 O2 Sat by Pulse Oximetry 97 Intake and Output: Intake & Output 06/13/21 06/14/21 06/15/21 06/16/21 23:59 23:59 23:59 23:59 Intake Total 800 / 800 1684 / 1684 2494 / 2494 251 / 251 Output Total 70 / 70 60 / 60 15 / 15 Balance 730 / 730 1624 / 1624 2479 / 2479 251 / 251 Physical Exam Oriented: Normal Eyes: Normal Ear: Normal Nose: Normal Throat: Normal Respiratory: Generalized and Diminished Cardiovascular: Normal : Normal Auscultation: Bowel Sounds: Normal Tenderness: Mild Skin: Decreased Turgur Musculoskeletal: Normal Psychiatric: Normal Mood Description: Calm Affect: Normal Speech Pattern: Clear and Appropriate Laboratory and Diagnostics Result Diagrams: 06/16/21 04:55 06/16/21 04:55 Labs: 06/11/21 18:58 Urine,Clean Catch Urine Culture - Final Laboratory WBC 5.1 X10^3/uL (3.6-10.0) 06/16/21 04:55 RBC 2.69 X10^6/uL (3.5-5.4) L 06/16/21 04:55 Hgb 7.5 g/dL (12.0-16.0) L 06/16/21 04:55 Hct 22.7 % (36.0-47.0) L 06/16/21 04:55 MCV 84.5 fL (80.0-100.0) 06/16/21 04:55 MCH 28.0 pg (27.0-34.0) 06/16/21 04:55 MCHC 33.1 g/dL (33.0-35.0) 06/16/21 04:55 RDW 17.6 % (11.6-16.5) H 06/16/21 04:55 Plt Count 128 X10^3/uL (150.0-450.0) L 06/16/21 04:55 Plt Count Comment Adequate (ADEQUATE) 06/12/21 04:28 MPV 7.3 fL (7.4-11.0) L 06/16/21 04:55 Neut % (Auto) 84.6 % (42.0-75.0) H 06/16/21 04:55 Lymph % (Auto) 9.1 % (21.0-51.0) L 06/16/21 04:55 [place] % (Auto) 6.2 % (0.0-13.0) 06/16/21 04:55 Eos % (Auto) 0.0 % (0.9-2.9) L 06/16/21 04:55 Baso % (Auto) 0.1 % (0.2-1.0) L 06/16/21 04:55 Neut # (Auto) 4.3 x10^3/uL (2.2-4.8) 06/16/21 04:55 Lymph # (Auto) 0.5 X10^3/uL (1.3-2.9) L 06/16/21 04:55 [place] # (Auto) 0.3 x10^3/uL (0.3-0.8) 06/16/21 04:55 Eos # (Auto) 0.0 x10^3/uL (0.0-0.2) 06/16/21 04:55 Baso # (Auto) 0.0 X10^3/uL (0.0-0.1) 06/16/21 04:55 Absolute Nucleated RBC 0.0 /100WBC 06/16/21 04:55 Total Counted 100 06/12/21 04:28 Neutrophils % (Manual) 80 % (39-76) H 06/12/21 04:28 Lymphocytes % (Manual) 14 % (13-43) 06/12/21 04:28 Monocytes % (Manual) 6 % (4-9) 06/12/21 04:28 Plt Morphology Comment Normal (NORMAL) 06/12/21 04:28 RBC Morphology Abnormal (NORMAL) A 06/12/21 04:28 Hypochromasia 1+ A 06/12/21 04:28 Anisocytosis 1+ A 06/12/21 04:28 Target Cells Slight A 06/11/21 17:54 Tear Drop Cells Slight A 06/11/21 17:54 Ovalocytes Slight A 06/11/21 17:54 D-Dimer 6.72 ug/ml (0.0-0.57) H* 06/15/21 04:41 Sodium 144 mmol/L (136-145) 06/16/21 04:55 Corrected Sodium 146 mmol/L (136-145) H 06/16/21 04:55 Potassium 3.5 mmol/L (3.5-5.1) 06/16/21 04:55 Chloride 110 mmol/L (98-107) H 06/16/21 04:55 Carbon Dioxide 23.4 mmol/L (21-32) 06/16/21 04:55 BUN 44 mg/dL (7-18) H 06/16/21 04:55 Creatinine 1.07 mg/dL (0.55-1.02) H 06/16/21 04:55 Est GFR (MDRD) Af Amer > 60 (>60) 06/16/21 04:55 Est GFR (MDRD) Non-Af 54 (>60) L 06/16/21 04:55 Glucose 181 mg/dL (65-99) H 06/16/21 04:55 POC Glucose (mg/dL) 167 mg/dL (65-99) H 06/15/21 19:34 Calcium 8.1 mg/dL (8.5-10.1) L 06/16/21 04:55 Corrected Calcium 9.3 mg/dL (8.5-10.1) 06/16/21 04:55 Total Bilirubin 0.20 mg/dL (0.2-1.0) 06/16/21 04:55 AST 34 Units/L (15-37) 06/16/21 04:55 ALT 11 Units/L (12-78) L 06/16/21 04:55 Alkaline Phosphatase 334 Units/L (46-116) H 06/16/21 04:55 Creatine Kinase 99 Units/L (26-192) 06/13/21 06:21 CK-MB (CK-2) 1.8 ng/mL (0-4.0) 06/13/21 06:21 CK/CKMB % Calc 1.8 % (<4) 06/13/21 06:21 Troponin I High Sens 135.3 ng/L (4.0-60.0) H* 06/15/21 04:41 C-Reactive Protein 70.10 mg/L (0-3.0) H 06/16/21 04:55 B-Natriuretic Peptide 896 pg/mL (0-79) H* 06/16/21 04:55 Total Protein 6.3 g/dL (6.4-8.2) L 06/16/21 04:55 Albumin 2.5 g/dL (3.4-5.0) L 06/16/21 04:55 Globulin 3.8 g/dL (2.5-4.5) 06/16/21 04:55 Albumin/Globulin Ratio 0.7 Ratio (1.1-2.1) L 06/16/21 04:55 Prealbumin 9.4 mg/dL (18-35.7) L 06/14/21 04:30 Amylase 48 Units/L (25-115) 06/12/21 04:28 Lipase 51 Units/L (73-393) L 06/12/21 04:28 Specimen Type Clean catch urine 06/11/21 18:58 Urine Color Yellow (YELLOW) 06/11/21 18:58 Urine Appearance Clear (CLEAR) 06/11/21 18:58 Urine pH 5.0 (5.0 - 8.0) 06/11/21 18:58 Ur Specific [place] 1.020 (1.000-1.030) 06/11/21 18:58 Urine Protein 3+ (NEGATIVE) 06/11/21 18:58 Urine Glucose (UA) Negative (NEGATIVE) 06/11/21 18:58 Urine Ketones 3+ (NEGATIVE) 06/11/21 18:58 Urine Occult Blood 1+ (NEGATIVE) 06/11/21 18:58 Urine Nitrite Negative (NEGATIVE) 06/11/21 18:58 Urine Bilirubin 1+ (NEGATIVE) 06/11/21 18:58 Urine Urobilinogen Normal (NORMAL) 06/11/21 18:58 Ur Leukocyte Esterase 1+ (NEGATIVE) 06/11/21 18:58 Urine RBC 0-2 /HPF (0-3) 06/11/21 18:58 Urine WBC 0-2 /HPF (0-5) 06/11/21 18:58 Ur Squamous Epith Cells Few /HPF (NEGATIVE) 06/11/21 18:58 Urine Bacteria 1+ /HPF (NEGATIVE) 06/11/21 18:58 Hyaline Casts Many /LPF (NEGATIVE) 06/11/21 18:58 Ur Culture Indicated? Yes/culture set up 06/11/21 18:58 SARS CoV-2 RNA Rapid ALY Positive (NEGATIVE) A 06/11/21 15:58 Plan (1) COVID-19: Status: Acute Plan: NORMAL SALINE AT KVO, ZOSYN 3.375G IV TID, LOVENOX 30MG SC BID, SOLU-MEDROL 40MG IV Q8H, MORPHINE 1-2MG IV Q4H PRN, PHENERGAN 25MG IM Q6H PRN, AND ZOFRAN 4MG IV Q6H PRN, (2) Small bowel obstruction: Status: Acute Plan: NG TUBE TO LOW INTERMITTENT SUCTION (3) Abdominal pain: Status: Acute Qualifiers: Abdominal location: generalized Qualified Code(s): R10.84 - Generalized abdominal pain (4) Intractable nausea and vomiting: Status: Acute (5) Metastatic disease: Status: Acute Qualifiers: Area of secondary neoplastic involvement: unspecified site Qualified Code(s): C79.9 - Secondary malignant neoplasm of unspecified site
[2021-06-16] MEDS ORDERED: COLACE CAP 100 MG PO ONE (19:43)
[2021-06-16] MEDS ORDERED: COLACE CAP 100 MG PO SCH (21:00)
[2021-06-17] MEDS: ZOSYN VIAL 3.375 GRAMS 3.375 G in NS 100 ML IV + SPIKE MINIBAG* 100 ML IV SCH (05:03)
[2021-06-17] MEDS: SOLU-Medrol 40 MG VIAL IVP SCH (05:03)
[2021-06-17] MEDS: NS 1,000 ML IV 1,000 ML IV SCH (05:06)
[2021-06-17 05:14] LABS: BASOPHILS % (AUTO) 0.1 % (0.2-1.0); HEMOGLOBIN 7.6 g/dL (12.0-16.0); LYMPHOCYTES # (AUTO) 0.5 X10^3/uL (1.3-2.9); LYMPHOCYTES % (AUTO) 10.5 % (21.0-51.0); MEAN CORPUSCULAR HEMOGLOBIN 27.8 pg (27.0-34.0); MEAN CORPUSCULAR HGB CONC 32.9 g/dL (33.0-35.0); MEAN CORPUSCULAR VOLUME 84.4 fL (80.0-100.0); MEAN PLATELET VOLUME 7.8 fL (7.4-11.0); MONOCYTES # (AUTO) 0.4 x10^3/uL (0.3-0.8); MONOCYTES % (AUTO) 7.3 % (0.0-13.0); NEUTROPHILS # (AUTO) 4.2 x10^3/uL (2.2-4.8); NEUTROPHILS % (AUTO) 82.1 % (42.0-75.0); RED BLOOD COUNT 2.73 X10^6/uL (3.5-5.4); RED CELL DISTRIBUTION WIDTH 17.8 % (11.6-16.5); WHITE BLOOD COUNT 5.2 X10^3/uL (3.6-10.0)
[2021-06-17 05:16] LABS: BLOOD UREA NITROGEN 33 mg/dL (7-18); CALCIUM 8.2 mg/dL (8.5-10.1); CARBON DIOXIDE 21.2 mmol/L (21-32); CHLORIDE 108 mmol/L (98-107); COR NA(FOR HYPERGLY) 143 mmol/L (136-145); CREATININE 0.88 mg/dL (0.55-1.02); SODIUM 142 mmol/L (136-145); eGFR NON BLACK RACES > 60 (>60)
[2021-06-17] MEDS ORDERED: K-DUR TAB 20 MEQ PO PRN (05:29)
[2021-06-17] MEDS ORDERED: POTASSIUM CHL 40 MEQ/NS 0.45% 500 ML IV PRN (05:29)
[2021-06-17] MEDS ORDERED: POTASSIUM CHLORIDE LIQ 20 MEQ UDC PO PRN (05:29)
[2021-06-17] MEDS ORDERED: POTASSIUM CHL 60 MEQ/NS 0.45% 500 ML IV PRN (05:29)
[2021-06-17] MEDS ORDERED: K-RIDER 10 MEQ/NS 100 ML 10 MEQ/100 ML BAG IV PRN (05:29)
[2021-06-17] MEDS ORDERED: KLOR-CON PO PRN (05:29)
[2021-06-17] MEDS ORDERED: MICRO K EXTEN CAP 10 MEQ PO PRN (05:29)
--- NOTE | 2021-06-17 06:29 | RAD ---
HISTORYSOB HX: MA, CIRRHOSIS, LIVER COLON CANCER, ACTIBE CERVICAL CANCER, METS SX: ABD, BOWEL RESECTION, CABG, MASTECTOMYSTUDYCHEST, 1 [id number] trachea is midline. Right Port-A-Cath tip in right atrium. The cardiac silhouette is obscured.. Persistent opacification of the mid and lower left sylvester thorax due to atelectasis, consolidation and moderate-sized pleural effusion. Is the right lung is clear. The bony thorax is unremarkable.IMPRESSIONPersistent opacification left mid and lower sylvester thorax due to atelectasis, consolidation and pleural effusion.No significant change from previous 06/16/2021..Electronically signed by: James Wolff (Jun 17, 2021 06:27:56)
[2021-06-17] MEDS: ALBUMIN HUMAN 25%- 100 ML 100 ML IV SCH (09:59)
[2021-06-17] MEDS: LOVENOX INJ 30 MG SYR SC SCH (10:00)
--- NOTE | 2021-06-17 12:19 | RAD ---
HISTORYSBO follow upSTUDYKUBCOMPARISONKUB June 16Portable KUBFINDINGSThere is paucity of bowel gas within the abdomen. Radiopaque, fluid-filled small bowel loops are demonstrated within the central abdomen and pelvis measuring up to 3.75 cm in maximum diameter. Adjacent gas-filled small bowel segments appear slightly less distended overall. There are small amounts of gas scattered within the colon. No secondary findings of free air are observed on the supine radiograph. Persistent opacification of the left lung base is observed.IMPRESSIONPaucity of bowel gas within the abdomen with persistent, mildly distended fluid and gas-filled small bowel segments within the central abdomen and pelvis.Left basilar opacification may correspond to any combination of atelectasis, effusion, or pneumonia.Electronically signed by: MOISES RICHEY (Jun 17, 2021 12:18:11)
--- NOTE | 2021-06-17 12:27 | W.DIS.FURT ---
Summary of Discharge Discharge Summary of Date Date of Exam: 06/17/21 Admission Date Date of Admission: 06/11/21 Admission Diagnosis Patient Problems (Updated 06/13/21 @ 13:48 by Henrry Shaikh) COVID-19 (Acute) U07.1 Abdominal pain (Acute) R10.9 Intractable nausea and vomiting (Acute) R11.2 Metastatic disease (Acute) C79.9 Small bowel obstruction (Acute) K56.609 Pleural effusion (Acute) J90 Hospital Course: PT IS A 71 YEAR OLD FEMALE ADMITTED FOR TREATMENT OF COVID-19 AND A SMALL BOWEL OBSTRUCTION. SHE HAS A HISTORY OF METASTATIC DISEASE. HER HOSPITAL/TREATMENT COURSE INCLUDED NPO, NG TUBE PLACEMENT, NAUSEA MANAGEMENT. SHE ALSO RECEIVED NORMAL SALINE, TPN, ALBUMIN, ZOSYN 3.375G IV TID, LOVENOX 30MG SC BID, SOLU- MEDROL 40MG IV Q8H, MORPHINE 1-2MG IV Q4H PRN, PHENERGAN 25MG IM Q6H PRN, AND ZOFRAN 4MG IV Q6H PRN. PT RESPONDED WELL TO TREATMENTS AND ABDOMINAL PAIN, NAUSEA, IMPROVED. NG TUBE WAS REMOVED AND PATIENT'S DIET WAS SLOWLY ADVANCED AND WELL TOLERATED. PT ALSO HAVING BOWEL MOVEMENTS. SHE DID NOT REQUIRE ANY SUPPLEMENTAL OXYGEN. PT WAS DISCHARGED IN STABLE CONDITION. RX LINZESS GIVEN. INSTRUCTED TO FOLLOW UP WITH PCP IN 3-5 DAYS. Vital Signs: Vital Signs (72 hours) 06/14/21 12:28 06/14/21 12:58 06/14/21 16:00 Temperature 97.9 F Pulse Rate [Left] 95 H Respiratory Rate 18 18 13 Blood Pressure [Right Arm] 113/70 O2 Sat by Pulse Oximetry 95 06/14/21 20:00 06/15/21 00:00 06/15/21 04:00 Temperature 98.3 F 98.4 F 98.2 F Pulse Rate [Left] 99 H 95 H 94 H Respiratory Rate 13 13 15 Blood Pressure [Right Arm] 116/60 123/64 110/64 O2 Sat by Pulse Oximetry 99 93 L 97 06/15/21 08:00 06/15/21 12:00 06/15/21 16:00 Temperature 97.5 F L 97.6 F 97.7 F Pulse Rate [Left] 91 H 87 89 Respiratory Rate 15 12 12 Blood Pressure [Right Arm] 137/69 134/70 151/72 O2 Sat by Pulse Oximetry 96 96 96 06/15/21 20:00 06/16/21 00:00 06/16/21 04:00 Temperature 97.8 F 98.1 F 97.5 F L Pulse Rate [Left] 91 H 85 80 Respiratory Rate 15 14 12 Blood Pressure [Right Arm] 135/73 147/83 130/70 O2 Sat by Pulse Oximetry 94 L 94 L 96 06/16/21 08:00 06/16/21 12:00 06/16/21 16:00 Temperature 97.9 F 97.7 F 97.5 F L Pulse Rate [Left] 85 83 79 Respiratory Rate 12 14 12 Blood Pressure [Right Arm] 150/82 146/70 143/75 O2 Sat by Pulse Oximetry 97 97 97 06/16/21 19:35 06/17/21 00:00 06/17/21 04:00 Temperature 98.1 F 98.7 F 98.1 F Pulse Rate [Left] 85 87 82 Respiratory Rate 15 16 16 Blood Pressure [Right Arm] 143/72 153/71 140/76 O2 Sat by Pulse Oximetry 94 L 96 06/17/21 08:00 Temperature 97.9 F Pulse Rate [Left] 84 Respiratory Rate 16 Blood Pressure [Right Arm] 158/72 O2 Sat by Pulse Oximetry 98 Labs: Laboratory Last Values WBC 5.2 X10^3/uL (3.6-10.0) 06/17/21 04:34 RBC 2.73 X10^6/uL (3.5-5.4) L 06/17/21 04:34 Hgb 7.6 g/dL (12.0-16.0) L 06/17/21 04:34 Hct 23.0 % (36.0-47.0) L 06/17/21 04:34 MCV 84.4 fL (80.0-100.0) 06/17/21 04:34 MCH 27.8 pg (27.0-34.0) 06/17/21 04:34 MCHC 32.9 g/dL (33.0-35.0) L 06/17/21 04:34 RDW 17.8 % (11.6-16.5) H 06/17/21 04:34 Plt Count 115 X10^3/uL (150.0-450.0) L 06/17/21 04:34 Plt Count Comment Adequate (ADEQUATE) 06/12/21 04:28 MPV 7.8 fL (7.4-11.0) 06/17/21 04:34 Neut % (Auto) 82.1 % (42.0-75.0) H 06/17/21 04:34 Lymph % (Auto) 10.5 % (21.0-51.0) L 06/17/21 04:34 [place] % (Auto) 7.3 % (0.0-13.0) 06/17/21 04:34 Eos % (Auto) 0.0 % (0.9-2.9) L 06/17/21 04:34 Baso % (Auto) 0.1 % (0.2-1.0) L 06/17/21 04:34 Neut # (Auto) 4.2 x10^3/uL (2.2-4.8) 06/17/21 04:34 Lymph # (Auto) 0.5 X10^3/uL (1.3-2.9) L 06/17/21 04:34 [place] # (Auto) 0.4 x10^3/uL (0.3-0.8) 06/17/21 04:34 Eos # (Auto) 0.0 x10^3/uL (0.0-0.2) 06/17/21 04:34 Baso # (Auto) 0.0 X10^3/uL (0.0-0.1) 06/17/21 04:34 Absolute Nucleated RBC 0.0 /100WBC 06/17/21 04:34 Total Counted 100 06/12/21 04:28 Neutrophils % (Manual) 80 % (39-76) H 06/12/21 04:28 Lymphocytes % (Manual) 14 % (13-43) 06/12/21 04:28 Monocytes % (Manual) 6 % (4-9) 06/12/21 04:28 Plt Morphology Comment Normal (NORMAL) 06/12/21 04:28 RBC Morphology Abnormal (NORMAL) A 06/12/21 04:28 Hypochromasia 1+ A 06/12/21 04:28 Anisocytosis 1+ A 06/12/21 04:28 Target Cells Slight A 06/11/21 17:54 Tear Drop Cells Slight A 06/11/21 17:54 Ovalocytes Slight A 06/11/21 17:54 D-Dimer 6.72 ug/ml (0.0-0.57) H* 06/15/21 04:41 Sodium 142 mmol/L (136-145) 06/17/21 04:34 Corrected Sodium 143 mmol/L (136-145) 06/17/21 04:34 Potassium 3.5 mmol/L (3.5-5.1) 06/17/21 04:34 Chloride 108 mmol/L (98-107) H 06/17/21 04:34 Carbon Dioxide 21.2 mmol/L (21-32) 06/17/21 04:34 BUN 33 mg/dL (7-18) H 06/17/21 04:34 Creatinine 0.88 mg/dL (0.55-1.02) 06/17/21 04:34 Est GFR (MDRD) Af Amer > 60 (>60) 06/17/21 04:34 Est GFR (MDRD) Non-Af > 60 (>60) 06/17/21 04:34 Glucose 156 mg/dL (65-99) H 06/17/21 04:34 POC Glucose (mg/dL) 150 mg/dL (65-99) H 06/17/21 05:16 Calcium 8.2 mg/dL (8.5-10.1) L 06/17/21 04:34 Corrected Calcium 9.3 mg/dL (8.5-10.1) 06/16/21 04:55 Total Bilirubin 0.20 mg/dL (0.2-1.0) 06/16/21 04:55 AST 34 Units/L (15-37) 06/16/21 04:55 ALT 11 Units/L (12-78) L 06/16/21 04:55 Alkaline Phosphatase 334 Units/L (46-116) H 06/16/21 04:55 Creatine Kinase 99 Units/L (26-192) 06/13/21 06:21 CK-MB (CK-2) 1.8 ng/mL (0-4.0) 06/13/21 06:21 CK/CKMB % Calc 1.8 % (<4) 06/13/21 06:21 Troponin I High Sens 135.3 ng/L (4.0-60.0) H* 06/15/21 04:41 C-Reactive Protein 33.60 mg/L (0-3.0) H 06/17/21 04:34 B-Natriuretic Peptide 1090 pg/mL (0-79) H* 06/17/21 04:34 Total Protein 6.3 g/dL (6.4-8.2) L 06/16/21 04:55 Albumin 2.5 g/dL (3.4-5.0) L 06/16/21 04:55 Globulin 3.8 g/dL (2.5-4.5) 06/16/21 04:55 Albumin/Globulin Ratio 0.7 Ratio (1.1-2.1) L 06/16/21 04:55 Prealbumin 9.4 mg/dL (18-35.7) L 06/14/21 04:30 Amylase 48 Units/L (25-115) 06/12/21 04:28 Lipase 51 Units/L (73-393) L 06/12/21 04:28 Specimen Type Clean catch urine 06/11/21 18:58 Urine Color Yellow (YELLOW) 06/11/21 18:58 Urine Appearance Clear (CLEAR) 06/11/21 18:58 Urine pH 5.0 (5.0 - 8.0) 06/11/21 18:58 Ur Specific [place] 1.020 (1.000-1.030) 06/11/21 18:58 Urine Protein 3+ (NEGATIVE) 06/11/21 18:58 Urine Glucose (UA) Negative (NEGATIVE) 06/11/21 18:58 Urine Ketones 3+ (NEGATIVE) 06/11/21 18:58 Urine Occult Blood 1+ (NEGATIVE) 06/11/21 18:58 Urine Nitrite Negative (NEGATIVE) 06/11/21 18:58 Urine Bilirubin 1+ (NEGATIVE) 06/11/21 18:58 Urine Urobilinogen Normal (NORMAL) 06/11/21 18:58 Ur Leukocyte Esterase 1+ (NEGATIVE) 06/11/21 18:58 Urine RBC 0-2 /HPF (0-3) 06/11/21 18:58 Urine WBC 0-2 /HPF (0-5) 06/11/21 18:58 Ur Squamous Epith Cells Few /HPF (NEGATIVE) 06/11/21 18:58 Urine Bacteria 1+ /HPF (NEGATIVE) 06/11/21 18:58 Hyaline Casts Many /LPF (NEGATIVE) 06/11/21 18:58 Ur Culture Indicated? Yes/culture set up 06/11/21 18:58 SARS CoV-2 RNA Rapid ALY Positive (NEGATIVE) A 06/11/21 15:58 Reason For Visit: ABD PAIN, SOB Discharge Date Discharge Date: 06/17/21 Discharge Diagnosis All Active Problems (Updated 06/13/21 @ 13:48 by Henrry Shaikh) COVID-19 (Acute) Abdominal pain (Acute) Intractable nausea and vomiting (Acute) Metastatic disease (Acute) Small bowel obstruction (Acute) Pleural effusion (Acute) Plan of Treatment: Continue with present treatment and follow up plan. Pt is to keep follow up appointment as instructed and take medications as ordered. Discharge Medications Discharge Medications: meperidine [From Demerol] Adverse Reaction (Mild, Verified 06/11/21 17:34) NAUSEA CONTINUE taking the following medications aspirin 81 mg PO DAILY 06/12/21 [History] clopidogrel 75 mg PO DAILY 06/12/21 [History] ferrous sulfate [FeroSul] 325 mg PO DAILY 06/12/21 [History] furosemide 40 mg PO BID 06/12/21 [History] metoprolol succinate 12.5 mg PO HS 06/12/21 [History] ondansetron 4 mg TRANSLINGUAL Q4H PRN 06/12/21 [History] oxycodone-acetaminophen [Percocet] 1 tab PO Q4H PRN 06/12/21 [History] rosuvastatin 20 mg PO HS 06/12/21 [History] Follow up and Referral Follow Up: 1 Week Discharge Disposition Discharge Disposition: HOME Discharge Condition: STABLE Discharge Plan Discharge Plan Hospital Course: PT IS A 71 YEAR OLD FEMALE ADMITTED FOR TREATMENT OF COVID-19 AND A SMALL BOWEL OBSTRUCTION. SHE HAS A HISTORY OF METASTATIC DISEASE. HER HOSPITAL/TREATMENT COURSE INCLUDED NPO, NG TUBE PLACEMENT, NAUSEA MANAGEMENT. SHE ALSO RECEIVED NORMAL SALINE, TPN, ALBUMIN, ZOSYN 3.375G IV TID, LOVENOX 30MG SC BID, SOLU- MEDROL 40MG IV Q8H, MORPHINE 1-2MG IV Q4H PRN, PHENERGAN 25MG IM Q6H PRN, AND ZOFRAN 4MG IV Q6H PRN. PT RESPONDED WELL TO TREATMENTS AND ABDOMINAL PAIN, NAUSEA, IMPROVED. NG TUBE WAS REMOVED AND PATIENT'S DIET WAS SLOWLY ADVANCED AND WELL TOLERATED. PT ALSO HAVING BOWEL MOVEMENTS. SHE DID NOT REQUIRE ANY SUPPLEMENTAL OXYGEN. PT WAS DISCHARGED IN STABLE CONDITION. RX LINZESS GIVEN. INSTRUCTED TO FOLLOW UP WITH PCP IN 3-5 DAYS. Patient Disposition: 01 HOME, SELF-CARE Condition: Stable Health Concerns: Post Hospitalization: new medications and changes needed to prevent readmission or further decline. Pt educated and given instructions on all concerns. Plan of Treatment: Continue with present treatment and follow up plan. Pt is to keep follow up appointment as instructed and take medications as ordered. Prescriptions: No Action rosuvastatin 20 mg tablet 20 mg PO HS RF: 0 furosemide 40 mg tablet 40 mg PO BID RF: 0 clopidogrel 75 mg tablet 75 mg PO DAILY RF: 0 metoprolol succinate 25 mg tablet extended release 24 hr 12.5 mg PO HS RF: 0 ferrous sulfate [FeroSul] 325 mg (65 mg iron) tablet 325 mg PO DAILY RF: 0 aspirin 81 mg tablet,delayed release (DR/EC) 81 mg PO DAILY RF: 0 ondansetron 4 mg tablet,disintegrating 4 mg translingual Q4H PRN (Reason: Nausea) RF: 0 oxycodone-acetaminophen [Percocet] 5-325 mg Tablet 1 tab PO Q4H PRN (Reason: Pain) RF: 0 Follow ups/Referrals Follow ups/Referrals: Henrry Shaikh [Primary Care Provider] - 1 WEEK Instructions Stand Alone Forms: Excuse From Work or School, Precautions for COVID19, [facility], Patient Portal, Social Distancing
[2021-06-17 12:50] VITALS: BP 144/72
== END 2021-06-17 13:30 | disposition home or self-care (01) | DRG 178 ==
LOC: MED/SURG → ICU 16:51
PROVIDERS: ADMIT Internal Medicine; ATTEND Internal Medicine